=== PATIENT | male | born 1945 | race Caucasian/White ===

== ENCOUNTER 2016-09-26 16:33 | Inpatient (IN) ==
[2016-09-26] MEDS ORDERED: Acetaminophen 325 MG TABLET PO PRN (20:27)
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
[2016-09-26 21:12] LABS: Basophils % 0.2 %; Eosinophils # 0.1 K/mcL (0.0-0.6); Eosinophils % 0.4 %; Immature Granulocytes % 0.4 % (0-4); Immature Platelets 12.3 % (1.1-6.1); Lymphocytes # 3.4 K/mcL (0.6-4.6); Lymphocytes % 26.6 %; Mean Corpuscular Hemoglobin 28.3 pg (28.0-33.3); Mean Corpuscular Volume 88.3 fL (83.0-100.0); Mean Platelet Volume 12.2 fL (9.4-12.4); Monocytes # 0.8 K/mcL (0.0-1.3); Monocytes % 6.2 %; Neutrophils # 8.4 K/mcL (1.6-8.9); Platelet Count 164 K/mcL (140-400); Red Blood Count 2.83 M/mcL (4.19-5.50); Red Cell Distribution Width 13.6 % (11.5-14.5); Segmented Neutrophils % 66.2 %
[2016-09-26] MEDS: *HR* HYDROcodone/Acet 5/325 mg TABLET PO PRN (21:26)
[2016-09-26] MEDS: Pantoprazole 40 MG in 0.9 % Sodium Chloride Mini Bag 100 ML IVC SCH (21:27)
[2016-09-26 21:29] LABS: INR 1.4
[2016-09-26 21:32] LABS: Activated Partial Thrombo Time 25.6 Seconds (26.0-36.0)
[2016-09-26] MEDS: Acetaminophen 325 MG TABLET PO PRN (23:22)
[2016-09-26] MEDS: Nicotine 21 MG PATCH.TD24 TD SCH (23:22)
[2016-09-27] MEDS: Pantoprazole 40 MG in 0.9 % Sodium Chloride Mini Bag 100 ML IVC SCH ×3 (02:18→20:57)
[2016-09-27 04:34] LABS: Basophils % 0.1 %; Eosinophils # 0.1 K/mcL (0.0-0.6); Eosinophils % 0.6 %; Hematocrit 20.8 % (37.5-50.1); Hemoglobin 6.8 g/dL (12.9-16.9); Immature Granulocytes % 0.4 % (0-4); Lymphocytes # 2.3 K/mcL (0.6-4.6); Lymphocytes % 22.8 %; Mean Corpuscular HGB Conc 32.7 g/dL (31.6-35.5); Mean Corpuscular Hemoglobin 28.9 pg (28.0-33.3); Mean Corpuscular Volume 88.5 fL (83.0-100.0); Mean Platelet Volume 13.1 fL (9.4-12.4); Monocytes # 0.5 K/mcL (0.0-1.3); Monocytes % 5.3 %; Platelet Count 136 K/mcL (140-400); Red Blood Count 2.35 M/mcL (4.19-5.50); Red Cell Distribution Width 13.8 % (11.5-14.5); Segmented Neutrophils % 70.8 %
[2016-09-27] MEDS ORDERED: 0.9 % Sodium Chloride 500 ML ONE (04:50)
[2016-09-27 04:52] LABS: BUN/Creatinine Ratio 34 (6-26); Blood Urea Nitrogen 37 mg/dL (8-26); Calcium 7.6 mg/dL (8.6-10.8); Carbon Dioxide 22 mEq/L (19-29); Chloride 113 mEq/L (98-109); Glucose 105 mg/dL (70-99); Magnesium 1.6 mg/dL (1.6-2.6); Osmolality,Calculated 297 (280-300); Phosphorous 2.7 mg/dL (2.3-4.7); Potassium 3.7 mEq/L (3.5-4.5); Sodium 139 mEq/L (136-145); eGFR For African Americans > 60 (> 60); eGFR For Non-African Americans > 60 (> 60)
[2016-09-27] MEDS ORDERED: 0.9 % Sodium Chloride Mini Bag 100 ML ONE ×2 (07:47→16:11)
[2016-09-27] MEDS: Nicotine 21 MG PATCH.TD24 TD SCH (07:50)
[2016-09-27] MEDS: *HR* HYDROcodone/Acet 5/325 mg TABLET PO PRN ×3 (07:51→23:28)
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
[2016-09-27] MEDS ORDERED: *HR* LORazepam 0.5 MG TABLET PO ONE (10:27)
[2016-09-27] MEDS: Acetaminophen 325 MG TABLET PO PRN (10:39)
[2016-09-27] MEDS: 0.9 % Sodium Chloride 1,000 ML IVC SCH ×2 (10:45→20:57)
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
[2016-09-27] MEDS: *HR* HYDROmorphone 2 MG/ML SYRINGE IVP PRN ×4 (11:53→22:34)
--- NOTE | 2016-09-27 14:47 | Anesthesia Evaluation PreOp ---
Date of Encounter: 09/27/16 Time of Encounter: 14:44 - Past History Planned Operation: egd/acute blood loss Cardiac History: Other (s/p 2 u prbc. cad, AAA s/p stent) Pulmonary History: Smoker, Pack/yr (60) ANTISQUEAK CHALKER History: Other (anxiety/depression) Other Medical History: Renal (stones), GERD Anesthesia History: No Prior Anesthetic Complications, Past Anesthesia (AAA stent) Alcohol Use: none Drug use: none Medications and Allergies No Known Home Drugs 09/26/16 [History] Allergies codeine Adverse Reaction (Verified 09/26/16 20:45) Shakiness - Meds/Allergy Pre-op Review Medications Reviewed: Yes Allergies Reviewed: Yes Beta Blockers on Current Med List: No Anesthesia Results - Labs 09/27/16 03:07 09/27/16 03:07 - Imaging EKG: report reviewed (sr) Anesthesia Exam Vital Signs/O2 Sat/Glucose, Most Current Temp Pulse Resp BP Pulse Ox 09/27/16 14:48 97.6 F 77 18 164/84 99 Height: 1.8 Weight: 170 NPO (# of Hours): >8 - HEENT Pupil (Motor): Pupils equal, EOMI Mallampati: I Teeth: Edentulous Oral Opening: Greater than 3 - ANTISQUEAK CHALKER LOC: Oriented ANTISQUEAK CHALKER Motor: Normal RUE, Normal LUE, Normal RLE, Normal LLE, Normal Face ANTISQUEAK CHALKER Sensory: Normal: RUE, LUE, RLE, LLE, Face - Cardiac Rhythm: Regular Murmur: None - Pulmonary Breath Sounds: bilateral Clear Respiratory Effort: Symmetrical Anesthesia Assess/Plan ASA Score: 2 Modified [place] Scale for Level of Consciousness: Cooperative, oriented, and tranquil Anesthetic Plan: MAC Monitoring Plan: Standard Monitors Recovery Plan: Other
[2016-09-27] MEDS ORDERED: *HR* EPINEPHrine 1 MG/10 ML SYRINGE INTRATRACH PRN (15:40)
[2016-09-27] MEDS ORDERED: Tetracaine/Benzocaine/Butamben 200MG/SPRAY (100SPY/BOT) MM ONE (15:40)
[2016-09-27] MEDS ORDERED: 0.9 % Sodium Chloride 1,000 ML IVC SCH (15:45)
[2016-09-27] MEDS ORDERED: Ondansetron ODT 4 MG TAB.RAPDIS SL PRN (16:58)
[2016-09-27 17:11] LABS: Chol/HDL Ratio 5.3 (0-4.9)
[2016-09-27] MEDS: hydroCHLOROthiazide 25 MG TABLET PO SCH (18:11)
[2016-09-28] MEDS: *HR* HYDROmorphone 2 MG/ML SYRINGE IVP PRN ×3 (01:31→07:28)
[2016-09-28] MEDS: Pantoprazole 40 MG in 0.9 % Sodium Chloride Mini Bag 100 ML IVC SCH ×4 (02:07→07:23)
[2016-09-28 06:55] VITALS: BP 138/72
[2016-09-28] MEDS: Nicotine 21 MG PATCH.TD24 TD SCH (07:19)
[2016-09-28] MEDS: hydroCHLOROthiazide 25 MG TABLET PO SCH (07:21)
[2016-09-28 08:44] LABS: Hematocrit 22.7 % (37.5-50.1); Hemoglobin 7.4 g/dL (12.9-16.9)
[2016-09-28] MEDS: *HR* HYDROcodone/Acet 5/325 mg TABLET PO PRN (08:45)
[2016-09-28 08:50] LABS: BUN/Creatinine Ratio 17 (6-26); Calcium 7.9 mg/dL (8.6-10.8); Carbon Dioxide 25 mEq/L (19-29); Chloride 110 mEq/L (98-109); Glucose 97 mg/dL (70-99); Osmolality,Calculated 292 (280-300); Potassium 3.6 mEq/L (3.5-4.5); Sodium 140 mEq/L (136-145); eGFR For African Americans > 60 (> 60); eGFR For Non-African Americans > 60 (> 60)
[2016-09-28 08:51] LABS: Blood Urea Nitrogen 19 mg/dL (8-26)
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
[2016-09-28] MEDS ORDERED: Lidocaine -MPF 2% 5 ML VIAL INFILT ONE (11:29)
[2016-09-28] MEDS ORDERED: *HR* Propofol 200 MG/20 ML VIAL IVP ONE (11:29)
== END 2016-09-28 11:30 | disposition home or self-care (01) | DRG 917 ==
LOC: 3ANU
PROVIDERS: ADMIT Hospitalist; ATTEND Internal Medicine

== ENCOUNTER 2017-06-14 22:00 | Inpatient (IN) ==
[2017-06-14] MEDS ORDERED: *HR* FentaNYL (PF) 100 MCG/2 ML VIAL IVP ONE (22:52)
[2017-06-14] MEDS ORDERED: *HR* Morphine 2 MG/ML SYRINGE IVP PRN (22:53)
[2017-06-14] MEDS ORDERED: Pantoprazole 40 MG VIAL IVP ONE (22:55)
--- NOTE | 2017-06-14 22:58 | Internal Med History&Physical ---
<Tab Monk - Last Filed: 06/14/17 22:56> Date of Encounter: 06/14/17 Time of Encounter: 22:56 Assessment and Plan (1) GI bleed Current visit: Yes Status: Suspected Patient has been experiencing black and bloody stools intermittently over the past few days. The patient has been taking a large amount NSAIDs due to chronic back pain and worsening of his back pain and he has been experiencing over the same course appeared to time. The patient has a history of gastric ulcer in the past visualized on endoscopy. We will begin the patient on Protonix twice a day, replace with IV fluids. We will continue to monitor the patient's hemoglobin and likely transfusion patient. We will obtain pain control as well. Qualifiers: GI bleed type/associated pathology: unspecified gastrointestinal hemorrhage type Qualified Code(s): K92.2 - Gastrointestinal hemorrhage, unspecified (2) Anemia Current visit: No Status: Acute Fluctuated over the course of the past week. Dropped to 7.0 today at outlying facility. We will continue to monitor the patient and type and screen for concern for possible transfusion if necessary. Qualifiers: Anemia type: unspecified type Qualified Code(s): D64.9 - Anemia, unspecified (3) YOHANNES (acute kidney injury) Current visit: No Status: Acute We will continue with IV fluid hydration and monitor renal status. (4) CAD (coronary artery disease) Current visit: No Status: Chronic Qualifiers: Coronary Disease-Associated Artery/Lesion type: [place] artery Qualified Code(s): I25.10 - Atherosclerotic heart disease of [place] coronary artery without angina pectoris (5) Hypertension Current visit: No Status: Chronic Poorly controlled on medications. We will continue to monitor. We will hold any medications at this time with concern for possible hypotension at outlying facility per report. Qualifiers: Hypertension type: essential hypertension Qualified Code(s): I10 - Essential (primary) hypertension Internal Medicine - H&P: HPI Chief complaint: Epigastric pain Admitted From: Emergency Dept Plans for Post Hospital Care: Home History of present illness: Mr. Dowling is a 72 year old male with history of past GI bleed arrives to emergency department complaining of epigastric discomfort as well as bilateral flank pain. The patient states that he has been unable to take any pain medication as recently seen in the emergency department and evaluated previously. The patient states that he has been extremity pain over the course of the past few days he has been taking medications. The patient states that he took an unknown quantity of Motrin as well as 15-20 tablets of acetaminophen at roughly 500 mg in size. The patient states that he has been experiencing epigastric pain as well. The patient states he has had intermittent episodes of black stools over the course of the past 48 hours. He denies any other abdominal pain, vomiting, diarrhea, difficulty breathing. The patient does have some associated chest pain with the epigastric but states it is radiating from his epigastric region into his retrosternal region. Patient denies any previous history of [place]. He has not been taking his hypertensive medications as prescribed. The patient denies any other complaints at this time. Workup at outlying facility revealed an anemia with a hemoglobin of 7.0. The patient states that he has had past endoscopy in the past in "had my ulcer fixed" through endoscopy. The patient denies any other complaints. He is resting comfortably in the room without any signs of tachycardia or hypotension. Past Med Surg Social Fam HX - Past Medical History Source: old records reviewed Medical history: aortic aneurysm, coronary artery disease, hyperlipidemia, hypertension, kidney stones, myocardial infarction Psychiatric history: anxiety, depression - Past Surgical History Surgical History: herniorrhaphy, vascular surgery, other - Social History Smoking Status: Former smoker Smokeless Tobacco Status: No Alcohol use: rarely Drug use: none Current living situation: Home, With Family - Family History Mother Living Status: Hx Family Cardiac Disorders: Yes ([place]) Father Adopted: No Living Status: Hx Family Cancer: Yes (Skin cancer) Internal Medicine - H&P: Meds cloNIDine HCl [CloNIDine HCl] 0.1 mg PO BID #30 tablet 06/12/17 [Rx] 3 Allergy/AdvReac Type Severity Reaction Status Date / Time acetaminophen AdvReac Fatigued Verified 06/12/17 17:33 codeine AdvReac Shakiness Verified 06/10/17 12:34 All Systems PM: A 10-system review of systems was performed and is negative for pertinent findings except as documented above in the HPI. - Constitutional Constitutional: no chills, no fever(s), no night sweats - EENT Eyes: no change in vision, no discharge, no pain, no photophobia - Cardiovascular Cardiovascular ROS IM: chest pain, no diaphoresis, no dyspnea, no lightheadedness, no palpitations, no syncope - Respiratory Respiratory: no cough, no dyspnea, no wheezing, no excessive phlegm production - Gastrointestinal Gastrointestinal: abdominal pain, melena, nausea, no diarrhea, no hematemesis, no hematochezia, no vomiting - Musculoskeletal Musculoskeletal ROS IM: no numbness, no tingling - Integumentary Integumentary IM: no rash, no unusual bruising - Neurological Neurological ROS: no confusion, no convulsions, no focal weakness, no numbness, no tingling, no tremor(s) - Hematologic/Lymphatic Hematologic/Lymphatic: no easy bruising - Constitutional Vitals: Temp Pulse Resp BP Pulse Ox 98.4 F 69 19 138/72 91 06/14/17 21:03 06/14/17 21:03 06/14/17 21:03 06/14/17 21:03 06/14/17 21:03 General appearance: Present: A&O X 3, pleasant, no acute distress - Head Head exam: Present: atraumatic, normocephalic - Eye Eye exam: Present: PERRL, conjuntiva pink, sclera anicteric Pupils: Present: PERRL - Neck Neck exam general surgery: Present: supple, trachea midline. Absent: lymphadenopathy - Respiratory Respiratory exam: Present: CTAB. Absent: accessory muscle use, rales, rhonchi, wheezes - Cardiovascular Cardiovascular exam: Present: RRR, +S1, +S2. Absent: diastolic murmur, gallop, rubs, systolic murmur - GI/Abdominal GI/Abdominal exam: Present: soft, no peritoneal signs. Absent: distended, tenderness - Extremities Exam Extremities exam: Present: warm, radial pulses palpable and symmetrical. Absent : calf tenderness, cyanotic, pedal edema - Neurological Exam Neurological exam: Present: CN II-XII intact, oriented X3, no focal deficits. Absent: pronater drift, facial droop, speech deficit - Skin Skin exam: Present: dry, intact - Attending Attestation I examined this patient and my medical decision-making was reviewed with the Resident Physician. I agree with the documented findings, disposition and treatment plan as described except to the extent set forth below. <Nieves Badillo - Last Filed: 06/15/17 05:29> Date of Encounter: 06/15/17 Internal Medicine - H&P: HPI History of present illness: Mr. Dowling is a 72 year old male All Systems PM: A 10-system review of systems was performed and is negative for pertinent findings except as documented above in the HPI. - Constitutional Vitals: Temp Pulse Resp BP Pulse Ox 98.4 F 76 19 146/66 98 06/15/17 04:43 06/15/17 04:43 06/15/17 04:43 06/15/17 04:43 06/15/17 04:43 Internal Med - H&P Results - Labs CBC & Chem 7: 06/15/17 01:32 06/14/17 23:02 Labs: Short CBC 06/14/17 06/15/17 Range/Units 23:02 01:32 WBC 7.4 (4.3-11.1) K/mcL Hgb 6.8 L 6.1 L (12.9-16.9) g/dL Hct 22.7 L 20.1 L (37.5-50.1) % Plt Count 219 (140-400) K/mcL Neutrophils # 5.0 (1.6-8.9) K/mcL BMP 06/14/17 23:02 Sodium 141 Potassium 3.2 L Chloride 111 H Carbon Dioxide 21 L BUN 29 H Creatinine 2.51 H Glucose 123 H Calcium 8.4 L Cardiac Enzymes 06/14/17 Range/Units 23:02 Troponin I < 0.03 (< 0.04) ng/mL - Attending Attestation I have seen and examined this patient independently. I have discussed with resident physician Dr. Monk regarding the management plan. Agree with that documentation.
[2017-06-14 23:12] LABS: Basophils % 0.3 %; Eosinophils # 0.1 K/mcL (0.0-0.6); Eosinophils % 1.8 %; Hematocrit 22.7 % (37.5-50.1); Hemoglobin 6.8 g/dL (12.9-16.9); Immature Granulocytes % 0.4 % (0-4); Lymphocytes # 1.8 K/mcL (0.6-4.6); Lymphocytes % 24.8 %; Mean Corpuscular Hemoglobin 26.5 pg (28.0-33.3); Mean Corpuscular Volume 88.3 fL (83.0-100.0); Mean Platelet Volume 12.8 fL (9.4-12.4); Monocytes # 0.4 K/mcL (0.0-1.3); Monocytes % 5.9 %; Platelet Count 219 K/mcL (140-400); Red Blood Count 2.57 M/mcL (4.19-5.50); Red Cell Distribution Width 18.1 % (11.5-14.5); Segmented Neutrophils % 66.8 %
[2017-06-14] MEDS: 0.9 % Sodium Chloride 1,000 ML IVC SCH (23:19)
[2017-06-14 23:30] LABS: Calcium 8.4 mg/dL (8.6-10.3); Potassium 3.2 mEq/L (3.5-5.1)
[2017-06-15] MEDS: *HR* LORazepam 2 MG/ML VIAL IVP ONE ×2 (00:55→01:01)
[2017-06-15] MEDS ORDERED: *HR* LORazepam 2 MG/ML VIAL IVP ONE ×2 (01:00→17:07)
[2017-06-15 01:44] LABS: Hematocrit 20.1 % (37.5-50.1); Hemoglobin 6.1 g/dL (12.9-16.9)
[2017-06-15 05:46] LABS: Basophils % 0.3 %; Eosinophils # 0.2 K/mcL (0.0-0.6); Hematocrit 22.2 % (37.5-50.1); Hemoglobin 6.8 g/dL (12.9-16.9); Immature Granulocytes % 0.5 % (0-4); Lymphocytes # 1.8 K/mcL (0.6-4.6); Lymphocytes % 28.3 %; Mean Corpuscular HGB Conc 30.6 g/dL (31.6-35.5); Mean Corpuscular Hemoglobin 26.6 pg (28.0-33.3); Mean Corpuscular Volume 86.7 fL (83.0-100.0); Mean Platelet Volume 12.5 fL (9.4-12.4); Monocytes # 0.4 K/mcL (0.0-1.3); Monocytes % 6.5 %; Platelet Count 200 K/mcL (140-400); Red Blood Count 2.56 M/mcL (4.19-5.50); Red Cell Distribution Width 17.7 % (11.5-14.5); Segmented Neutrophils % 61.4 %
[2017-06-15] MEDS: *HR* Morphine 2 MG/ML SYRINGE IVP PRN ×9 (05:50→20:16)
[2017-06-15] MEDS: Pantoprazole 40 MG VIAL IVP SCH ×2 (05:55→17:23)
[2017-06-15 06:00] LABS: Calcium 7.8 mg/dL (8.6-10.3); Potassium 3.1 mEq/L (3.5-5.1)
[2017-06-15] MEDS ORDERED: Naloxone 0.4 MG/ML INJ IVP PRN (06:15)
[2017-06-15] MEDS ORDERED: Potassium Chloride 40 MEQ, Lidocaine 1% 2 ML in D5% in Water 500 ML IVPB ONE (06:24)
--- NOTE | 2017-06-15 08:15 | General Surgery Consult Note ---
Addendum entered and electronically signed by Mami Dobson MD 06/15/17 18:25: Correction: Plan for EGD/colonoscopy. Original Note: <Mami Dobson - Last Filed: 06/15/17 17:50> Date of Encounter: 06/15/17 Time of Encounter: 08:15 Assessment and Plan (1) GI bleed Current Visit: Yes Status: Suspected Pt complaining of melanotic stools s/p unknown quantity of Motrin as well as 15- 20 tablets of acetaminophen at roughly 500 mg in size. -Endorsed intermittent episodes of black stools over the course of the past 48 hours. -Pt denies this was due to SI ideation to RN, and secondary to chronic back and "due to my kidneys". -Denied SI/HI to resident . -Clear liquid diet. -Attending Terry discussed risk and benefits of procedure to patient. Pt amenable to plan. - Plan for EGD tomorrow. -NPO diet from midnight. Qualifiers: GI bleed type/associated pathology: unspecified gastrointestinal hemorrhage type Qualified Code(s): K92.2 - Gastrointestinal hemorrhage, unspecified (2) CAD (coronary artery disease) Current Visit: No Status: Chronic Management per primary team. Qualifiers: Coronary Disease-Associated Artery/Lesion type: [place] artery Qualified Code(s): I25.10 - Atherosclerotic heart disease of [place] coronary artery without angina pectoris (3) Hypertension Current Visit: No Status: Chronic Management per primary team. 181 One elevated SBP at 185. Pt asymptomatic. Requested RN repeat BP and returned with 147/70. RN to notify hospitalist if elevated BP. Recommend IV low- dose lopressor PRN if elevated SBP. Qualifiers: Hypertension type: essential hypertension Qualified Code(s): I10 - Essential (primary) hypertension (4) Anemia Current Visit: No Status: Acute Hgb stable. Continue monitoring CBC. Qualifiers: Anemia type: unspecified type Qualified Code(s): D64.9 - Anemia, unspecified (5) YOHANNES (acute kidney injury) Current Visit: No Status: Acute Management per primary team. (6) NSAID overdose Current Visit: No Status: Acute management per primary team. Denies HI/SI to resident . Pt complaining of anxiety to multiple staff One time 0.5 mg ativan PO dose, per Dr. Stewart Likely will require psych consultation for complete assessment for psychological issues Qualifiers: Encounter type: initial encounter Injury intent: undetermined intent Qualified Code(s): T39.394A - Poisoning by other nonsteroidal anti-inflammatory drugs [NSAID], undetermined, initial encounter History of Present Illness Consult date: 06/15/17 Reason for consult: other Requesting physician: Nieves Badillo History of present illness: Mr. Dowling is a 72 year old male with history of past GI bleed arrives to emergency department complaining of epigastric discomfort as well as bilateral flank pain. Patient has been experiencing black and bloody stools intermittently over the past few days. The patient has been taking a large amount NSAIDs due to chronic back pain and worsening of his back pain and he has been experiencing over the same course appeared to time. The patient has a history of gastric ulcer in the past visualized on endoscopy. Past Med Surg Social Fam HX - Past Medical History Medical history: aortic aneurysm, coronary artery disease, hyperlipidemia, hypertension, kidney stones, myocardial infarction Psychiatric history: anxiety, depression - Past Surgical History Surgical History: herniorrhaphy, vascular surgery, other - Social History Smoking Status: Former smoker Smokeless Tobacco Status: No Alcohol use: rarely Drug use: none - Family History Mother Living Status: Hx Family Cardiac Disorders: Yes ([place]) Father Adopted: No Living Status: Hx Family Cancer: Yes (Skin cancer) Medications and Allergies cloNIDine HCl [CloNIDine HCl] 0.1 mg PO BID #30 tablet 06/12/17 [Rx] Famotidine [Pepcid] 20 mg PO DAILY 06/15/17 [History] Ibuprofen [Ibuprofen] 800 mg PO TID PRN 06/15/17 [History] Ondansetron ODT [Zofran ODT] 4 mg PO Q6H PRN 06/15/17 [History] 3 Allergy/AdvReac Type Severity Reaction Status Date / Time acetaminophen AdvReac Fatigued Verified 06/12/17 17:33 codeine AdvReac Shakiness Verified 06/10/17 12:34 Review of Systems All systems PM: As documented above in the HPI. General Surgery Exam Initial Vital Signs Temp Pulse Resp BP Pulse Ox 98.4 F 69 19 138/72 91 06/14/17 21:03 06/14/17 21:03 06/14/17 21:03 06/14/17 21:03 06/14/17 21:03 - General physical appearance well developed, no distress - Eyes normal ocular movement - Respiratory normal expansion, normal respiratory effort, clear to auscultation - Cardiovascular Cardiovascular exam: Present: regular rhythm Additional Comments: +S1, +S2, - Abdomen Abdomen general surgery: Present: bowel sounds present, soft (pulsatile mass palpated near midline, consistent with Aortoiliac endograft), tender (mild tenderenss ) - Neurologic Present: normal coordination - Psychiatric Psychiatric general surgery: Present: appropriate, oriented to person, oriented to place, oriented to time, speech is normal Exam Initial Vital Signs Temp Pulse Resp BP Pulse Ox 98.4 F 69 19 138/72 91 06/14/17 21:03 06/14/17 21:03 06/14/17 21:03 06/14/17 21:03 06/14/17 21:03 Results - Labs 06/15/17 16:50 06/15/17 05:32 Abnormal lab results RBC 2.56 M/mcL (4.19-5.50) L 06/15/17 05:32 Hgb 6.8 g/dL (12.9-16.9) L 06/15/17 05:32 Hct 22.2 % (37.5-50.1) L 06/15/17 05:32 MCH 26.6 pg (28.0-33.3) L 06/15/17 05:32 MCHC 30.6 g/dL (31.6-35.5) L 06/15/17 05:32 RDW 17.7 % (11.5-14.5) H 06/15/17 05:32 MPV 12.5 fL (9.4-12.4) H 06/15/17 05:32 Potassium 3.1 mEq/L (3.5-5.1) L 06/15/17 05:32 Chloride 110 mEq/L (98-107) H 06/15/17 05:32 Carbon Dioxide 22 mEq/L (23-29) L 06/15/17 05:32 BUN 25 mg/dL (8-23) H 06/15/17 05:32 Creatinine 2.14 mg/dL (0.70-1.30) H 06/15/17 05:32 Est GFR ( Amer) 37 (> 60) L 06/15/17 05:32 Est GFR (Non-Af Amer) 31 (> 60) L 06/15/17 05:32 POC Glucose 108 (58-89) H 06/15/17 04:47 Calcium 7.8 mg/dL (8.6-10.3) L 06/15/17 05:32 Acetaminophen < 1.0 mcg/mL (10-30) L 06/14/17 23:02 Diabetes panel 06/14/17 06/15/17 Range/Units 23:02 05:32 Sodium 141 138 (136-145) mEq/L Potassium 3.2 L 3.1 L (3.5-5.1) mEq/L Chloride 111 H 110 H (98-107) mEq/L Carbon Dioxide 21 L 22 L (23-29) mEq/L BUN 29 H 25 H (8-23) mg/dL Creatinine 2.51 H 2.14 H (0.70-1.30) mg/dL Glucose 123 H 99 (70-105) mg/dL Calcium 8.4 L 7.8 L (8.6-10.3) mg/dL Calcium panel 06/14/17 06/15/17 Range/Units 23:02 05:32 Calcium 8.4 L 7.8 L (8.6-10.3) mg/dL Pituitary panel 06/14/17 06/15/17 Range/Units 23:02 05:32 Sodium 141 138 (136-145) mEq/L Potassium 3.2 L 3.1 L (3.5-5.1) mEq/L Chloride 111 H 110 H (98-107) mEq/L Carbon Dioxide 21 L 22 L (23-29) mEq/L BUN 29 H 25 H (8-23) mg/dL Creatinine 2.51 H 2.14 H (0.70-1.30) mg/dL Glucose 123 H 99 (70-105) mg/dL Calcium 8.4 L 7.8 L (8.6-10.3) mg/dL Adrenal panel 06/14/17 06/15/17 Range/Units 23:02 05:32 Sodium 141 138 (136-145) mEq/L Potassium 3.2 L 3.1 L (3.5-5.1) mEq/L Chloride 111 H 110 H (98-107) mEq/L Carbon Dioxide 21 L 22 L (23-29) mEq/L BUN 29 H 25 H (8-23) mg/dL Creatinine 2.51 H 2.14 H (0.70-1.30) mg/dL Glucose 123 H 99 (70-105) mg/dL Calcium 8.4 L 7.8 L (8.6-10.3) mg/dL All other labs normal. Consult Discharge Plan - Plan Referrals: NONE,PCP [Primary Care Provider] - <Calvin Stewart - Last Filed: 06/16/17 17:26> Date of Encounter: 06/15/17 Review of Systems All systems PM: A 10-system review of systems was performed and is negative for pertinent findings except as documented above in the HPI. General Surgery Exam Initial Vital Signs Temp Pulse Resp BP Pulse Ox 98.4 F 69 19 138/72 91 06/14/17 21:03 06/14/17 21:03 06/14/17 21:03 06/14/17 21:03 06/14/17 21:03 Exam Initial Vital Signs Temp Pulse Resp BP Pulse Ox 98.4 F 69 19 138/72 91 06/14/17 21:03 06/14/17 21:03 06/14/17 21:03 06/14/17 21:03 06/14/17 21:03 Results - Labs 06/16/17 04:26 06/16/17 04:26 Abnormal lab results RBC 2.92 M/mcL (4.19-5.50) L 06/16/17 04:26 Hgb 7.7 g/dL (12.9-16.9) L 06/16/17 04:26 Hct 25.2 % (37.5-50.1) L 06/16/17 04:26 MCH 26.4 pg (28.0-33.3) L 06/16/17 04:26 MCHC 30.6 g/dL (31.6-35.5) L 06/16/17 04:26 RDW 17.0 % (11.5-14.5) H 06/16/17 04:26 MPV 12.9 fL (9.4-12.4) H 06/16/17 04:26 Potassium 3.4 mEq/L (3.5-5.1) L 06/16/17 04:26 Chloride 112 mEq/L (98-107) H 06/16/17 04:26 Est GFR (Non-Af Amer) 57 (> 60) L 06/16/17 04:26 POC Glucose 100 (58-89) H 06/15/17 17:24 Calcium 7.9 mg/dL (8.6-10.3) L 06/16/17 04:26 Acetaminophen < 1.0 mcg/mL (10-30) L 06/14/17 23:02 Diabetes panel 06/16/17 Range/Units 04:26 Sodium 143 (136-145) mEq/L Potassium 3.4 L (3.5-5.1) mEq/L Chloride 112 H (98-107) mEq/L Carbon Dioxide 24 (23-29) mEq/L BUN 16 (8-23) mg/dL Creatinine 1.24 (0.70-1.30) mg/dL Glucose 91 (70-105) mg/dL Calcium 7.9 L (8.6-10.3) mg/dL Calcium panel 06/16/17 Range/Units 04:26 Calcium 7.9 L (8.6-10.3) mg/dL Pituitary panel 06/16/17 Range/Units 04:26 Sodium 143 (136-145) mEq/L Potassium 3.4 L (3.5-5.1) mEq/L Chloride 112 H (98-107) mEq/L Carbon Dioxide 24 (23-29) mEq/L BUN 16 (8-23) mg/dL Creatinine 1.24 (0.70-1.30) mg/dL Glucose 91 (70-105) mg/dL Calcium 7.9 L (8.6-10.3) mg/dL Adrenal panel 06/16/17 Range/Units 04:26 Sodium 143 (136-145) mEq/L Potassium 3.4 L (3.5-5.1) mEq/L Chloride 112 H (98-107) mEq/L Carbon Dioxide 24 (23-29) mEq/L BUN 16 (8-23) mg/dL Creatinine 1.24 (0.70-1.30) mg/dL Glucose 91 (70-105) mg/dL Calcium 7.9 L (8.6-10.3) mg/dL All other labs normal. - Attending Attestation I examined this patient and my medical decision-making was reviewed with the Resident Physician. I agree with the documented findings, disposition and treatment plan as described except to the extent set forth below. I reviewed with the above assessment and evaluation above. Patient with no abdominal pain symptoms or nausea vomiting history. Noted dark-colored of black stool. On examination he has some mild tenderness to palpation in the left side of the abdomen. This may be related to a palpable aneurysm which she is already had documented by CAT scan. I think it would be reasonable to consider an EGD and colonoscopy as an inpatient. Discussed with the patient and he agrees with the above plan. We will tentatively schedule this for tomorrow if he has a successful bowel prep.
[2017-06-15] MEDS: 0.9 % Sodium Chloride 1,000 ML IVC SCH ×2 (09:31→22:10)
[2017-06-15 10:54] LABS: Hematocrit 24.6 % (37.5-50.1); Hemoglobin 7.7 g/dL (12.9-16.9)
[2017-06-15 16:58] LABS: Hematocrit 24.1 % (37.5-50.1); Hemoglobin 7.6 g/dL (12.9-16.9)
[2017-06-15] MEDS ORDERED: *HR* LORazepam 0.5 MG TABLET PO ONE (17:08)
[2017-06-15] MEDS ORDERED: Milk and Molasses Enema 200 ML RC ONE (17:09)
--- NOTE | 2017-06-15 18:12 | Internal Med Progress Note ---
Date of Encounter: 06/15/17 Time of Encounter: 18:10 - Assessment and plan (1) GI bleed Current Visit: Yes Status: Suspected Assessment and plan: When he presented with that taking many medications weakness also reported black stools. Likely having upper GI bleed. Being evaluated by surgical team. He has stopped in his hemoglobin and had 2 units of blood transfusion. Continued on PPI I Qualifiers: GI bleed type/associated pathology: unspecified gastrointestinal hemorrhage type Qualified Code(s): K92.2 - Gastrointestinal hemorrhage, unspecified (2) Acute blood loss anemia Current Visit: No Status: Acute Assessment and plan: Patient reported that he has been having black stools. Hemoglobin dropped to 6.8 and has received 2 units of blood and up to 7.6 he has taken multiple ibuprofen continued to complain of upper abdominal pain. Surgery evaluating. Continue to monitor hemoglobin and evaluate for need for EGD. (3) NSAID overdose Current Visit: No Status: Acute Assessment and plan: He has been taking more than prescribed ibuprofen. And then he presented he has taken many tablets of NSAIDS will continue with proton pump inhibitors.. He was advised not to take any NSAIDS Qualifiers: Encounter type: initial encounter Injury intent: undetermined intent Qualified Code(s): T39.394A - Poisoning by other nonsteroidal anti-inflammatory drugs [NSAID], undetermined, initial encounter (4) YOHANNES (acute kidney injury) Current Visit: No Status: Acute Assessment and plan: His Renal function is abnormal. BUN is 29 and 2.5 on admission not sure about any prior chronic kidney disease. But with IV fluids and blood transfusion is improving BUN 25 creatinine 2.1 continue to monitor renal function. (5) Suicidal behavior Current Visit: Yes Status: Acute Assessment and plan: In addition to Tylenol, ibuprofen he took many tablets of clonidine as well. Daughter was at the bedside and discussed the case condition with me. He also has chronic pain. He seems to be dependent on narcotics as well. He used to go to different ERs to get pain medications. She also requested me to evaluate regarding depression and suicidal heavier since he knows that he cannot take many tablets of clonidine and he took it anyway. Psychiatric consult placed. Qualifiers: Attempted self-injury: with attempted self-injury Qualified Code(s): T14.91XA - Suicide attempt, initial encounter - Time Spent With Patient Greater than 35 minutes - Subjective Interval history: Patient presented to the emergency room with a complaint of epigastric pain and back pain. He has a chronic back pain. He has been on pain medications including opioids. Daughter and her family was at the bedside. Daughter reports he has issues with them narcotic dependency. And also because of his back pain he also took many tablets of ibuprofen and Tylenol as well as some clonidine. And there they do suspect that he has some suicidal intent and that they reported me that they would like him to be evaluated by psychiatric for depression and suicidal ideation. He has reported a black stools as well. Surgery evaluating for possible upper GI bleed. Has been on morphine 2 mg every 2 hours here. In addition to that he is asking for more medication to control his pain and for anxiety as well I told him we will not increase or add any more medications at this time. He denied any chest pain or shortness of breath at rest. He also requesting evaluation for dementia. - Constitutional Vitals: Temp Pulse Resp BP Pulse Ox 98.4 F 92 18 185/89 98 06/15/17 17:14 06/15/17 17:14 06/15/17 17:14 06/15/17 17:14 06/15/17 17:14 General appearance: Present: A&O X 3, pleasant, no acute distress Exam: Chronically ill-looking male in no acute distress has spell no cyanosis or jaundice. Mucous membranes moist. No epistaxis. Neck without any cervical or supraclavicular lymphadenopathy. CVS S1 and S2 are regular. No murmur appreciated. Respiratory system decreased entry bilaterally. No crepitations or rhonchi. Abdomen, no distention mild epigastric tenderness no hepatomegaly. Extremities no significant edema no calf tenderness. BUSINESS CONTINUITY COORDINATOR he is alert awake oriented no facial asymmetry. Mood appears depressed. Internal Medicine: Result - Labs CBC & Chem 7: 06/15/17 16:50 06/15/17 05:32 Labs: Short CBC 06/14/17 06/15/17 06/15/17 Range/Units 23:02 01:32 05:32 WBC 7.4 6.4 (4.3-11.1) K/mcL Hgb 6.8 L 6.1 L 6.8 L (12.9-16.9) g/dL Hct 22.7 L 20.1 L 22.2 L (37.5-50.1) % Plt Count 219 200 (140-400) K/mcL Neutrophils # 5.0 4.0 (1.6-8.9) K/mcL 06/15/17 06/15/17 Range/Units 10:34 16:50 WBC (4.3-11.1) K/mcL Hgb 7.7 L 7.6 L (12.9-16.9) g/dL Hct 24.6 L 24.1 L (37.5-50.1) % Plt Count (140-400) K/mcL Neutrophils # (1.6-8.9) K/mcL BMP 06/14/17 06/15/17 23:02 05:32 Sodium 141 138 Potassium 3.2 L 3.1 L Chloride 111 H 110 H Carbon Dioxide 21 L 22 L BUN 29 H 25 H Creatinine 2.51 H 2.14 H Glucose 123 H 99 Calcium 8.4 L 7.8 L Cardiac Enzymes 06/14/17 06/15/17 Range/Units 23:02 05:32 Troponin I < 0.03 < 0.03 (< 0.04) ng/mL - Impressions Impressions Abdomen/Pelvis CT 06/15/17 05:27 IMPRESSION: There are multiple calculi in both kidneys and there is a tiny calculus in the urinary bladder. There is no hydronephrosis and there are no ureteral calculi at this time. D/ / Jacques Oviedo MD / Jacques Oviedo MD Interpreting Provider: Jacques Oviedo MD - VTE Documentation of Mechanical Device: Intermittent pneumatic compression device Consult Discharge Plan - Plan Referrals: NONE,PCP [Primary Care Provider] -
[2017-06-15] MEDS: *HR* LORazepam 1 MG TABLET PO PRN (21:28)
[2017-06-15 23:10] LABS: Hematocrit 23.4 % (37.5-50.1); Hemoglobin 7.3 g/dL (12.9-16.9)
[2017-06-15] MEDS: Polyethylene Glycol 3350 255 GM POWDER PO ONE (23:45)
[2017-06-15] MEDS: *HR* Morphine 2 MG/ML SYRINGE IVP SCH (23:45)
[2017-06-16] MEDS: Polyethylene Glycol 3350 255 GM POWDER PO ONE (00:01)
[2017-06-16] MEDS: Pantoprazole 40 MG VIAL IVP SCH ×2 (04:33→16:58)
[2017-06-16] MEDS: *HR* Morphine 2 MG/ML SYRINGE IVP SCH ×6 (04:33→21:35)
[2017-06-16] MEDS: 0.9 % Sodium Chloride 1,000 ML IVC SCH (04:37)
[2017-06-16 05:09] LABS: Hematocrit 25.2 % (37.5-50.1); Hemoglobin 7.7 g/dL (12.9-16.9); Mean Corpuscular HGB Conc 30.6 g/dL (31.6-35.5); Mean Corpuscular Hemoglobin 26.4 pg (28.0-33.3); Mean Corpuscular Volume 86.3 fL (83.0-100.0); Mean Platelet Volume 12.9 fL (9.4-12.4); Platelet Count 179 K/mcL (140-400); Red Blood Count 2.92 M/mcL (4.19-5.50)
[2017-06-16 05:24] LABS: BUN/Creatinine Ratio 13 (6-26); Blood Urea Nitrogen 16 mg/dL (8-23); Calcium 7.9 mg/dL (8.6-10.3); Carbon Dioxide 24 mEq/L (23-29); Chloride 112 mEq/L (98-107); Glucose 91 mg/dL (70-105); Osmolality,Calculated 297 (280-300); Potassium 3.4 mEq/L (3.5-5.1); Sodium 143 mEq/L (136-145); eGFR For African Americans > 60 (> 60); eGFR For Non-African Americans 57 (> 60)
[2017-06-16] MEDS: *HR* LORazepam 1 MG TABLET PO PRN ×3 (06:39→20:50)
--- NOTE | 2017-06-16 09:59 | Anesthesia Evaluation PreOp ---
Date of Encounter: 06/16/17 Time of Encounter: 09:57 - Past History Planned Operation: EGD Cardiac History: Denies any Significant Hx (Left USE Cardiac History: [place], HTN ( came in with hypertensive urgency), Other (CAD, PAD with AAA repair with graft) Pulmonary History: Former smoker [employer] History: Denies Any Significant HX Other Medical History: Renal (stones, has YOHANNES secondary to stones), GERD Anesthesia History: No Prior Anesthetic Complications, Past Anesthesia (AAA repair, hernia ) Alcohol Use: rarely), [place], HTN, Other (CASD, PAD, AAA repair) Pulmonary History: Former smoker [employer] History: Denies Any Significant HX Other Medical History: Renal (stones), GERD Anesthesia History: No Prior Anesthetic Complications, Past Anesthesia (AAA repair, hernia, Kidney stone extraction) Alcohol Use: rarely Drug use: none Medications and Allergies cloNIDine HCl [CloNIDine HCl] 0.1 mg PO BID #30 tablet 06/12/17 [Rx] Famotidine [Pepcid] 20 mg PO DAILY 06/15/17 [History] Ibuprofen [Ibuprofen] 800 mg PO TID PRN 06/15/17 [History] Ondansetron ODT [Zofran ODT] 4 mg PO Q6H PRN 06/15/17 [History] 3 Allergy/AdvReac Type Severity Reaction Status Date / Time acetaminophen AdvReac Fatigued Verified 06/12/17 17:33 codeine AdvReac Shakiness Verified 06/10/17 12:34 - Meds/Allergy Pre-op Review Medications Reviewed: Yes Allergies Reviewed: Yes Beta Blockers on Current Med List: No Anesthesia Results - Labs 06/16/17 04:26 06/16/17 04:26 - Imaging EKG: report reviewed (SR) Anesthesia Exam Vital Signs/O2 Sat, Most Current Temp Pulse Resp BP Pulse Ox 97.8 F 68 16 169/75 98 06/16/17 04:43 06/16/17 08:41 06/16/17 04:43 06/16/17 04:43 06/15/17 17:14 NPO (# of Hours): > 8 hrs Pain Scale: 0 Pain Scale Used: Numeric (1 - 10) - HEENT Pupil (Motor): Pupils equal, EOMI Mallampati: II Teeth: Edentulous Oral Opening: Greater than 3 - [employer] LOC: Oriented [employer] Motor: Normal RUE, Normal LUE, Normal RLE, Normal LLE, Normal Face [employer] Sensory: Normal: RUE, LUE, RLE, LLE, Face - Cardiac Rhythm: Regular Murmur: None JVD: No Carotid Bruit: No - Pulmonary Breath Sounds: bilateral Clear Respiratory Effort: Symmetrical Anesthesia Assess/Plan ASA Score: 3 Modified [place] Scale for Level of Consciousness: Cooperative, oriented, and tranquil Anesthetic Plan: MAC Autologous Blood: Yes Monitoring Plan: Standard Monitors Recovery Plan: Other
[2017-06-16] MEDS ORDERED: *HR* Propofol 200 MG/20 ML VIAL IVP ONE (10:08)
[2017-06-16] MEDS ORDERED: Lidocaine -MPF 2% 2 ML VIAL ONE (10:08)
--- NOTE | 2017-06-16 10:37 | Event Note ---
Date of Encounter: 06/16/17 Time of Encounter: 10:35 EGD performed; noted granular mucosa of the GE junction. Biopsy obtained. Noted granular mucosa of the antrum. Biopsied. Several erosions in the duodenal bulb. Biopsy obtained. Recommend continued PPI and add carafate. Will contact the patient with the results of the biopsy once they have been obtained. Advance diet as tolerated. Will sign off; thank you.
--- NOTE | 2017-06-16 13:54 | Consult Note ---
Date of Encounter: 06/16/17 Time of Encounter: 13:46 Assessment & Recommendation (1) Suicidal behavior Current visit: Yes Status: Acute Assessment & Recommendation: Client was minimally cooperative with assessment. Denied depression. Denied SI. Denied having any mental health concerns. Guarded. May need assessed again once medical testing is complete. Would help to have collateral information from friends/family as to how he has been doing at home. At a minimum would refer for outpatient counseling. Would recommend a social work consult and possibly a reassessment from psychiatry prior to discharge. Qualifiers: Attempted self-injury: with attempted self-injury Qualified Code(s): T14.91XA - Suicide attempt, initial encounter History of Present Illness Requesting Physician: Rodger Escobar DO Reason for consult: suicidal ideation History of present illness: Mr. Dowling is a 72 year old male who was admitted medically for a GI bleed. Had been overtaking medications at home. Client states he was overtaking meds due to "feeling bad." When asked to elaborate he would only say he was having physical pain in back and kidneys. Family concerned for depression and possible SI. On eval client is minimally cooperative. Denies everything. Denies depression. Denies SI. Denies need for mental health services. Client states he has never seen a psychiatrist before and doesn't feel he needs one now. 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 Denies he has ever been prescribed this medication outside of a hospital setting. When asked if he would like outpatient services for anxiety his response was "maybe later. " CC: Rodger Escobar DO Past Med Surg Social Fam HX - Past Medical History Medical history: aortic aneurysm, coronary artery disease, hyperlipidemia, hypertension, kidney stones, myocardial infarction - Past Psychiatric History Psychiatric history: Reports: no psych history Family psychiatric history: Unknown Family History of Suicide: Unknown - Past Surgical History Surgical History: herniorrhaphy, vascular surgery, other - Social History Smoking Status: Former smoker Smokeless Tobacco Status: No Alcohol use: rarely Drug use: none - Family History Mother Living Status: Hx Family Cardiac Disorders: Yes ([place]) Father Adopted: No Living Status: Hx Family Cancer: Yes (Skin cancer) Medications & Allergies cloNIDine HCl [CloNIDine HCl] 0.1 mg PO BID #30 tablet 06/12/17 [Rx] Famotidine [Pepcid] 20 mg PO DAILY 06/15/17 [History] Ibuprofen [Ibuprofen] 800 mg PO TID PRN 06/15/17 [History] Ondansetron ODT [Zofran ODT] 4 mg PO Q6H PRN 06/15/17 [History] 3 Allergy/AdvReac Type Severity Reaction Status Date / Time acetaminophen AdvReac Fatigued Verified 06/12/17 17:33 codeine AdvReac Shakiness Verified 06/10/17 12:34 Review of Systems Constitutional: Denies: fever, chills, weakness, weight change Eyes: Denies: eye pain, vision change Ears, Nose, Throat: Denies: ear pain, throat pain, dental pain, hearing loss, congestion Cardiovascular: Denies: chest pain, palpitations, dyspnea on exertion Respiratory: Denies: cough, dyspnea, wheezes Gastrointestinal: Reports: hematemisis Genitourinary male: Reports: hematuria Genitourinary female: Denies: urgency, dysuria, frequency, abnormal menses, dyspareunia Musculoskeletal: Reports: back pain, joint pain, myalgia Integumentary: Denies: rash, lesions, pruritus Neurological: Reports: weakness Psychiatric: Reports: irritability Endocrine: Denies: fatigue, heat or cold intolerance Hematologic/Lymphatic: Denies: easy bruising, lymphadenopathy Allergic/Immunologic: Denies: urticaria, itchy eyes Mental Status Exam Patient orientation: Yes Person, Yes Time, Yes Place Level of alertness: Alert Patient appearance: Appropriate Behavior: guarded Psychomotor activity: Normal Eye contact: Minimal Contact Mood description: Irritable Affect description: congruent with mood Speech pattern: Normal rate, Normal rhythm, Normal tone Speech volume: Normal Thought process: Linear Thought content: No Suicidal ideation, No Homicidal ideation, No Overt delusions Perceptual disturbances: No Auditory hallucinations, No Visual hallucinations Attention span: Capable of Focused Attention Memory description: Grossly Intact Patient reliability: Questionable Historian Intelligence estimate: Average Judgment: Limited Insight: Minimal Results - Vital Signs Vital signs: Temp Pulse Resp BP Pulse Ox 98.8 F 64 16 156/87 98 06/16/17 10:57 06/16/17 10:57 06/16/17 10:57 06/16/17 10:57 06/15/17 17:14 - Labs Labs: Laboratory Last Values WBC 5.7 K/mcL (4.3-11.1) 06/16/17 04:26 RBC 2.92 M/mcL (4.19-5.50) L 06/16/17 04:26 Hgb 7.7 g/dL (12.9-16.9) L 06/16/17 04:26 Hct 25.2 % (37.5-50.1) L 06/16/17 04:26 MCV 86.3 fL (83.0-100.0) 06/16/17 04:26 MCH 26.4 pg (28.0-33.3) L 06/16/17 04:26 MCHC 30.6 g/dL (31.6-35.5) L 06/16/17 04:26 RDW 17.0 % (11.5-14.5) H 06/16/17 04:26 Plt Count 179 K/mcL (140-400) 06/16/17 04:26 MPV 12.9 fL (9.4-12.4) H 06/16/17 04:26 Immature Gran % 0.5 % (0-4) 06/15/17 05:32 Seg Neutrophils % 61.4 % 06/15/17 05:32 Lymphocytes % 28.3 % 06/15/17 05:32 Monocytes % 6.5 % 06/15/17 05:32 Eosinophils % 3.0 % 06/15/17 05:32 Basophils % 0.3 % 06/15/17 05:32 Neutrophils # 4.0 K/mcL (1.6-8.9) 06/15/17 05:32 Lymphocytes # 1.8 K/mcL (0.6-4.6) 06/15/17 05:32 Monocytes # 0.4 K/mcL (0.0-1.3) 06/15/17 05:32 Eosinophils # 0.2 K/mcL (0.0-0.6) 06/15/17 05:32 Basophils # 0.0 K/mcL (0.0-0.2) 06/15/17 05:32 Sodium 143 mEq/L (136-145) 06/16/17 04:26 Potassium 3.4 mEq/L (3.5-5.1) L 06/16/17 04:26 Chloride 112 mEq/L (98-107) H 06/16/17 04:26 Carbon Dioxide 24 mEq/L (23-29) 06/16/17 04:26 BUN 16 mg/dL (8-23) 06/16/17 04:26 Creatinine 1.24 mg/dL (0.70-1.30) 06/16/17 04:26 Est GFR ( Amer) > 60 (> 60) 06/16/17 04:26 Est GFR (Non-Af Amer) 57 (> 60) L 06/16/17 04:26 BUN/Creatinine Ratio 13 (6-26) 06/16/17 04:26 Glucose 91 mg/dL (70-105) 06/16/17 04:26 POC Glucose 100 (58-89) H 06/15/17 17:24 Calculated Osmolality 297 (280-300) 06/16/17 04:26 Calcium 7.9 mg/dL (8.6-10.3) L 06/16/17 04:26 Troponin I < 0.03 ng/mL (< 0.04) 06/15/17 05:32 Acetaminophen < 1.0 mcg/mL (10-30) L 06/14/17 23:02 Blood Type A POSITIVE 06/14/17 09:27 Antibody Screen NEGATIVE 06/14/17 09:27 Crossmatch See Detail 06/14/17 09:27 Consult Discharge Plan - Plan Referrals: NONE,PCP [Primary Care Provider] -
--- NOTE | 2017-06-16 13:55 | Anesthesia Evaluation Post Op ---
Date of Encounter: 06/16/17 Time of Encounter: 13:55 - Vital Signs Vital Signs: Vital Signs/O2 Sat, Most Current Temp Pulse Resp BP Pulse Ox 98.8 F 64 16 156/87 98 06/16/17 10:57 06/16/17 10:57 06/16/17 10:57 06/16/17 10:57 06/15/17 17:14 - Lungs Lungs: Clear Ascult./Percussion - Airway Airway: Non-obstructed - Cardiovascular Regular Rate - Mental Status Mental Status: Alert & Oriented, Answers Appropriately - Pain Pain Scale: 0 Pain Scale used: Numeric (1 - 10) - Nausea Vomiting Nausea Vomiting: Not Present - Hydration Hydration: Tolerates oral liquids, Has not voided - Discharge PostOp Status: Transfer Patient to floor
--- NOTE | 2017-06-16 16:41 | Internal Med Progress Note ---
Date of Encounter: 06/16/17 Time of Encounter: 16:10 - Assessment and plan (1) Melena Current Visit: Yes Status: Acute Assessment and plan: Pt s/p EGD and biopsies today. No overt bleeding noted. No further procedures planned at this time. (2) Acute blood loss anemia Current Visit: No Status: Acute Assessment and plan: Hemoglobin 7.7 today. Symptomatic at this time. Will give another unit of blood. No obvious bleeding noted. (3) NSAID overdose Current Visit: No Status: Acute Assessment and plan: Took multiple ibuprofen to "feel better." No NSAIDS now. Qualifiers: Encounter type: subsequent encounter Injury intent: undetermined intent Qualified Code(s): T39.394D - Poisoning by other nonsteroidal anti-inflammatory drugs [NSAID], undetermined, subsequent encounter (4) Hypokalemia Current Visit: No Status: Acute Assessment and plan: Replace today. Will give IV due to GI issues. (5) Clonidine overdose Current Visit: Yes Status: Acute Assessment and plan: See above Qualifiers: Encounter type: subsequent encounter Injury intent: undetermined intent Qualified Code(s): T46.5X4D - Poisoning by other antihypertensive drugs, undetermined, subsequent encounter (6) Suicidal behavior Current Visit: Yes Status: Acute Assessment and plan: Evaluated by psychiatry today. Pt denies suicidal ideation at this time but is very evasive in discussion. Further psych input needed. Qualifiers: Attempted self-injury: with attempted self-injury Qualified Code(s): T14.91XA - Suicide attempt, initial encounter (7) Hypertension Current Visit: No Status: Chronic Assessment and plan: Chronic issue. BP going up now. Will restart Clonidine and wean off. Feel he is high risk for rebound HTN now and in future. Qualifiers: Hypertension type: essential hypertension Qualified Code(s): I10 - Essential (primary) hypertension (8) CAD (coronary artery disease) Current Visit: No Status: Chronic Assessment and plan: Chronic issue Qualifiers: Coronary Disease-Associated Artery/Lesion type: [place] artery [place] vs. transplanted heart: [place] heart Associated angina: without angina Qualified Code(s): I25.10 - Atherosclerotic heart disease of [place] coronary artery without angina pectoris - Subjective Interval history: Mr Dowling is currently admitted for acute GI bleed and anemia. He remains moderate to high risk due to potential for worsening clinical status. Mr Dowling is complaining of "kidney pain" and requesting IV pain meds. No fever or chills. Had EGD today and biopsy taken. Surgery signed off and no further procedures planned. Still feels somewhat tired. Hemoglobin still low. - Constitutional Vitals: Temp Pulse Resp BP Pulse Ox 98.8 F 64 16 156/87 98 06/16/17 10:57 06/16/17 10:57 06/16/17 10:57 06/16/17 10:57 06/15/17 17:14 General appearance: Present: A&O X 3, no acute distress - Head Head exam: Present: atraumatic, normocephalic - Eye Eye exam: Present: EOMI, conjuntiva pink - ENT ENT exam: Present: mucous membranes dry - Respiratory Respiratory exam: Present: decreased breath sounds. Absent: rales, rhonchi, wheezes - Cardiovascular Cardiovascular exam: Present: RRR, systolic murmur - GI/Abdominal GI/Abdominal exam: Present: soft. Absent: tenderness - Extremities Exam Extremities exam: Present: warm. Absent: tenderness - Neurological Exam Neurological exam: Present: alert, no focal deficits - Skin Skin exam: Present: warm. Absent: rash Internal Medicine: Result - Labs CBC & Chem 7: 06/16/17 04:26 06/16/17 04:26 Labs: Short CBC 06/15/17 06/15/17 06/16/17 Range/Units 16:50 22:58 04:26 WBC 5.7 (4.3-11.1) K/mcL Hgb 7.6 L 7.3 L 7.7 L (12.9-16.9) g/dL Hct 24.1 L 23.4 L 25.2 L (37.5-50.1) % Plt Count 179 (140-400) K/mcL BMP 06/16/17 04:26 Sodium 143 Potassium 3.4 L Chloride 112 H Carbon Dioxide 24 BUN 16 Creatinine 1.24 Glucose 91 Calcium 7.9 L - VTE Documentation of Mechanical Device: Intermittent pneumatic compression device Consult Discharge Plan - Plan Referrals: NONE,PCP [Primary Care Provider] -
[2017-06-16] MEDS ORDERED: Potassium Chloride 20 MEQ, Lidocaine 1% 2 ML in D5% in Water 250 ML IVPB ONE (16:55)
[2017-06-16] MEDS: 0.9 % Sodium Chloride 250 ML IVC SCH (18:33)
[2017-06-16] MEDS: traMADol 50 MG TABLET PO PRN (19:57)
[2017-06-17] MEDS: *HR* Morphine 2 MG/ML SYRINGE IVP PRN ×3 (00:49→20:00)
[2017-06-17] MEDS: 0.9 % Sodium Chloride 250 ML IVC SCH ×2 (03:42→13:00)
[2017-06-17 04:30] LABS: Hematocrit 26.4 % (37.5-50.1); Hemoglobin 8.3 g/dL (12.9-16.9); Mean Corpuscular HGB Conc 31.4 g/dL (31.6-35.5); Mean Corpuscular Hemoglobin 27.1 pg (28.0-33.3); Mean Corpuscular Volume 86.3 fL (83.0-100.0); Mean Platelet Volume 12.6 fL (9.4-12.4); Platelet Count 209 K/mcL (140-400); Red Blood Count 3.06 M/mcL (4.19-5.50); Red Cell Distribution Width 16.3 % (11.5-14.5)
[2017-06-17 04:48] LABS: BUN/Creatinine Ratio 13 (6-26); Blood Urea Nitrogen 18 mg/dL (8-23); Calcium 7.9 mg/dL (8.6-10.3); Carbon Dioxide 26 mEq/L (23-29); Chloride 112 mEq/L (98-107); Glucose 103 mg/dL (70-105); Magnesium 1.9 mg/dL (1.6-2.6); Osmolality,Calculated 296 (280-300); Potassium 3.8 mEq/L (3.5-5.1); Sodium 142 mEq/L (136-145); eGFR For African Americans > 60 (> 60); eGFR For Non-African Americans 51 (> 60)
[2017-06-17] MEDS: Pantoprazole 40 MG VIAL IVP SCH ×2 (04:56→17:08)
[2017-06-17] MEDS: *HR* LORazepam 1 MG TABLET PO PRN ×3 (04:56→20:00)
--- NOTE | 2017-06-17 09:36 | Internal Med Progress Note ---
Date of Encounter: 06/17/17 Time of Encounter: 09:36 - Constitutional Vitals: Temp Pulse Resp BP Pulse Ox 98.2 F 69 18 187/90 98 06/17/17 08:12 06/17/17 08:12 06/17/17 08:12 06/17/17 08:12 06/17/17 08:12 General appearance: Present: A&O X 3, no acute distress Internal Medicine: Result - Labs CBC & Chem 7: 06/17/17 03:36 06/17/17 03:36 Labs: Short CBC 06/17/17 Range/Units 03:36 WBC 7.0 (4.3-11.1) K/mcL Hgb 8.3 L (12.9-16.9) g/dL Hct 26.4 L (37.5-50.1) % Plt Count 209 (140-400) K/mcL BMP 06/17/17 03:36 Sodium 142 Potassium 3.8 Chloride 112 H Carbon Dioxide 26 BUN 18 Creatinine 1.37 H Glucose 103 Calcium 7.9 L - VTE Documentation of Mechanical Device: Intermittent pneumatic compression device Consult Discharge Plan - Plan Referrals: NONE,PCP [Primary Care Provider] -
[2017-06-17] MEDS: traMADol 50 MG TABLET PO PRN ×3 (10:23→20:00)
--- NOTE | 2017-06-17 14:18 | Psychiatry Progress Note ---
Date of Encounter: 06/17/17 Time of Encounter: 13:35 Subjective Interval history: Marcus is seen today for follow-up of possible overdose and depression symptoms. Patient remains guarded and giving minimal information to this provider. He denies suicidal ideation. He denied that he was attempting to kill himself by taking too much medications. He does not want outpatient counseling or mental health follow-up with any kind. Staff had concerns about her speaking with patient's daughter, Camille, with whom the patient lives. Spoke with Camille ([phone]) she reports that she is very concerned about her father's mental health. She does believe he intentionally overdosed on multiple medications. Also, he did test positive for opiates at the outside facility before being transferred here to [facility] daughter reports he has no active prescription for opiate pain pills and that he is struggling with opiate addiction. She also reports that at home he is not eating or sleeping well. He does not shower without significant encouragement from her. She is concerned that he is very depressed and he will hurt himself again. He has never been hospitalized for depression but she reports that he did overdose 4 years ago in a similar manner. She also reports a stressor is that he has an upcoming court date for a DUI in [place] and she feels like he has "just given up." Review of Systems Psychiatric: Reports: irritability. Denies: depression, anxiety, suicidal ideation Objective: Exam Patient orientation: Yes Person, Yes Time, Yes Place Level of alertness: Alert Patient appearance: Appropriate Behavior: guarded Psychomotor activity: Normal Eye contact: Minimal Contact Mood description: Euthymic/stable Affect description: flat, incongruent with mood Speech pattern: Normal rate, Normal rhythm, Normal tone Speech volume: Normal Thought process: Intact, [place] Thought content: No Suicidal ideation, No Homicidal ideation Perceptual disturbances: No Auditory hallucinations, No Visual hallucinations Judgment: Limited Insight: Minimal Results - Vital Signs Vital Signs: Temp Pulse Resp BP Pulse Ox 98.3 F 84 15 168/82 98 06/17/17 12:04 06/17/17 12:04 06/17/17 12:04 06/17/17 12:04 06/17/17 12:04 - Labs Labs: Laboratory Results - last 24 hr 06/14/17 06/17/17 06/17/17 09:27 03:36 03:36 WBC 7.0 RBC 3.06 L Hgb 8.3 L Hct 26.4 L MCV 86.3 MCH 27.1 L MCHC 31.4 L RDW 16.3 H Plt Count 209 MPV 12.6 H Sodium 142 Potassium 3.8 Chloride 112 H Carbon Dioxide 26 BUN 18 Creatinine 1.37 H Est GFR ( Amer) > 60 Est GFR (Non-Af Amer) 51 L BUN/Creatinine Ratio 13 Glucose 103 Calculated Osmolality 296 Calcium 7.9 L Magnesium 1.9 Blood Type A POSITIVE Antibody Screen NEGATIVE Crossmatch See Detail - Impressions ITS Impressions Abdomen/Pelvis CT 06/15/17 05:27 IMPRESSION: There are multiple calculi in both kidneys and there is a tiny calculus in the urinary bladder. There is no hydronephrosis and there are no ureteral calculi at this time. D/ / Jacques Oviedo MD / Jacques Oviedo MD Interpreting Provider: Jacques Oviedo MD Assessment and Plan (1) Depression Current visit: Yes Status: Acute Plan: Continue hospitalization, Close observation, Suicide Precautions per unit protocol, Monitor sleep, Monitor appetite Additional Plan: Recommend one-to-one sitter as the patient does not want treatment for his depression. According to family, he may in fact try to hurt himself again and daughter is very concerned about his behavior prior to the overdose. We should admit to geriatric psychiatric facility for further stabilization once he is medically stable. [place] slip filled out. Risks, benefits, side effects, alternatives discussed w/pt: Yes Patient agreeable to treatment: Yes Qualifiers: Depression Type: major depressive disorder Major depression recurrence: recurrent Active/Remission status: currently active Major depression episode severity: severe Psychotic features: without psychotic features Qualified Code(s): F33.2 - Major depressive disorder, recurrent severe without psychotic features (2) Opiate dependence Current visit: Yes Status: Acute Plan: Continue hospitalization, Close observation, Suicide Precautions per unit protocol Additional Plan: Has apparently been taking pain pills even though he has no prescription. Daughter says that this is a chronic issue and he refuses rehabilitation. Qualifiers: Substance use status: uncomplicated Qualified Code(s): F11.20 - Opioid dependence, uncomplicated Consult Discharge Plan - Plan Referrals: NONE,PCP [Primary Care Provider] - (PATIENT DOESN'T WANT US TO FIND HIM A FAMILY DOCTOR)
--- NOTE | 2017-06-17 16:00 | Discharge Summary ---
<Jose Elias Carreno - Last Filed: 06/17/17 15:58> Date of Encounter: 06/17/17 Time of Encounter: 15:58 - Discharge Diagnosis (1) Clonidine overdose Priority: Primary Status: Acute Qualifiers: Encounter type: subsequent encounter Injury intent: undetermined intent Qualified Code(s): T46.5X4D - Poisoning by other antihypertensive drugs, undetermined, subsequent encounter (2) Melena Priority: Secondary Status: Acute (3) Suicidal behavior Priority: Secondary Status: Acute Qualifiers: Attempted self-injury: with attempted self-injury Qualified Code(s): T14.91XA - Suicide attempt, initial encounter (4) Acute blood loss anemia Priority: Secondary Status: Acute (5) Hypokalemia Priority: Secondary Status: Acute (6) NSAID overdose Priority: Secondary Status: Acute Qualifiers: Encounter type: subsequent encounter Injury intent: undetermined intent Qualified Code(s): T39.394D - Poisoning by other nonsteroidal anti-inflammatory drugs [NSAID], undetermined, subsequent encounter (7) CAD (coronary artery disease) Priority: Secondary Status: Chronic Qualifiers: Coronary Disease-Associated Artery/Lesion type: [place] artery [place] vs. transplanted heart: [place] heart Associated angina: without angina Qualified Code(s): I25.10 - Atherosclerotic heart disease of [place] coronary artery without angina pectoris (8) Hypertension Priority: Secondary Status: Chronic Qualifiers: Hypertension type: essential hypertension Qualified Code(s): I10 - Essential (primary) hypertension - Discharge Medications Home Medications: cloNIDine HCl [CloNIDine HCl] 0.1 mg PO BID #30 tablet 06/12/17 [Rx] Famotidine [Pepcid] 20 mg PO DAILY 06/15/17 [History] Ibuprofen 800 mg PO TID PRN 06/15/17 [History] Ondansetron ODT [Zofran ODT] 4 mg PO Q6H PRN 06/15/17 [History] LORazepam [Ativan] 1 mg PO TID PRN tablet 06/17/17 [Rx] Morphine [Morphine Sulfate] 2 mg IVP Q3H PRN syringe 06/17/17 [Rx] Naloxone [Narcan] 0.4 mg IVP Q2MIN PRN inj 06/17/17 [Rx] Pantoprazole [Protonix] 40 mg IVP Q12HR vial 06/17/17 [Rx] hydrALAZINE [HydrALAZINE] 10 mg IVP Q6HR PRN vial 06/17/17 [Rx] Allergies/Adverse Reactions: 3 Allergy/AdvReac Type Severity Reaction Status Date / Time acetaminophen AdvReac Fatigued Verified 06/12/17 17:33 codeine AdvReac Shakiness Verified 06/10/17 12:34 Procedures/tests Complete & Pending: Procedures Performed prior 72 hours Category Date Time Status CT abd pelvis wo no iv no oral [CT] Stat Cat Scan 06/15/17 05:27 Completed Date of admission: 06/15/17 06:14 Primary care physician: PCP NONE Consults: 06/15/17 06:13 Consult to Surgery [CONS] Routine Consulting Provider: [facility] Reason for Consult: GI bleed Call Completed: Yes 06/15/17 18:17 Consult to Psychiatry [CONS] Routine Consulting Provider: Psychiatry [facility] Reason for Consult: Evaluation for depression and suicidal thoughts Time Notified: 18:18 Call Completed: No 06/17/17 15:52 Consult to Sales Exhibitor [CONS] Stat Reason for SW Consult: [place] for geriatric psych - Patient Status Disposition: Transfer Psychiatric Hosp Condition: Fair Functional capacity at discharge: bed bound Overall status at discharge: patient is not back to baseline - Discharge Instructions Follow Up With: NONE,PCP [Primary Care Provider] - (PATIENT DOESN'T WANT US TO FIND HIM A FAMILY DOCTOR) Additional Instructions: patient to be transferred to Psychiatric unit 1A once bed is available - Diet and Activity Activity: increase activity as tolerated Hospital course: Mr. Dowling is a 72 year old male w/ hx of GI bleed presented to [facility] with complaints of epigastric discomroft and bilateral flank pain. Patient stated that he took unknown quanities of unknown medications. Surgery was consulted due to concern for Gi bleed. EGD was performed by dr Calvin marroquin with no active bleads visualized. As well an CT abd was performed that showed multiple calculi in both kidneys and a tiny calculus in the urinary bladder. Patient during hospitalization denied suicidial or homicidial ideations but due to conversations with daughter, and multiple concerns from various providers psychiatry was consulted. Patient remained inpatient for 4 days. Patient is medically stable and asymptomatic at this time. Patient to be transferred to Psychiatry unit 1A at [facility]. - Time Spent with Patient Total time spent providing and/or coordinating discharge services: - Constitutional Vitals: Temp Pulse Resp BP Pulse Ox 98.3 F 84 15 168/82 98 06/17/17 12:04 06/17/17 12:04 06/17/17 12:04 06/17/17 12:04 06/17/17 12:04 General appearance: Present: A&O X 3, no acute distress - Head Head exam: Present: atraumatic, normocephalic - Respiratory Respiratory exam: Present: CTAB. Absent: accessory muscle use, rales, rhonchi, wheezes - Cardiovascular Cardiovascular exam: Present: RRR, +S1, +S2. Absent: diastolic murmur, gallop, rubs, systolic murmur - GI/Abdominal GI/Abdominal exam: Present: normal bowel sounds, soft, no peritoneal signs. Absent: distended, tenderness - Psychiatric Psychiatric exam: Present: depressed, flat affect. Absent: homicidal ideation, manic Additional comments: patient was apprehensive during exam. - VTE Documentation of Mechanical Device: Intermittent pneumatic compression device <Rodger Escobar - Last Filed: 06/17/17 17:47> Date of Encounter: 06/17/17 - Discharge Diagnosis (1) Melena Priority: Primary Status: Acute (2) Acute blood loss anemia Status: Acute (3) Clonidine overdose Status: Suspected Qualifiers: Encounter type: subsequent encounter Injury intent: intentional self-harm Qualified Code(s): T46.5X2D - Poisoning by other antihypertensive drugs, intentional self-harm, subsequent encounter (4) NSAID overdose Status: Suspected Qualifiers: Encounter type: subsequent encounter Injury intent: intentional self-harm Qualified Code(s): T39.392D - Poisoning by other nonsteroidal anti- inflammatory drugs [NSAID], intentional self-harm, subsequent encounter (5) Hypokalemia Status: Resolved (6) Suicidal behavior Status: Acute Qualifiers: Attempted self-injury: with attempted self-injury Qualified Code(s): T14.91XA - Suicide attempt, initial encounter (7) Hypertension Status: Chronic Qualifiers: Hypertension type: essential hypertension Qualified Code(s): I10 - Essential (primary) hypertension (8) CAD (coronary artery disease) Status: Chronic Qualifiers: Coronary Disease-Associated Artery/Lesion type: [place] artery [place] vs. transplanted heart: [place] heart Associated angina: without angina Qualified Code(s): I25.10 - Atherosclerotic heart disease of [place] coronary artery without angina pectoris Procedures/tests Complete & Pending: Procedures Performed prior 72 hours Category Date Time Status CT abd pelvis wo no iv no oral [CT] Stat Cat Scan 06/15/17 05:27 Completed Date of admission: 06/15/17 06:14 Primary care physician: PCP NONE Consults: 06/15/17 06:13 Consult to Surgery [CONS] Routine Consulting Provider: [facility] Reason for Consult: GI bleed Call Completed: Yes 06/15/17 18:17 Consult to Psychiatry [CONS] Routine Consulting Provider: [facility] Reason for Consult: Evaluation for depression and suicidal thoughts Time Notified: 18:18 Call Completed: No 06/17/17 15:52 Consult to Sales Exhibitor [CONS] Stat Reason for SW Consult: [place] for geriatric psych Hospital course: Mr. Dowling is a 72 year old male - Time Spent with Patient Total time spent providing and/or coordinating discharge services: 38min - Constitutional Vitals: Temp Pulse Resp BP Pulse Ox 98.3 F 84 15 168/82 98 06/17/17 12:04 06/17/17 12:04 06/17/17 12:04 06/17/17 12:04 06/17/17 12:04 - Attending Attestation I examined this patient and my medical decision-making was reviewed with the Resident Physician on 06/17/17. I agree with the documented findings, disposition and treatment plan as described except to the extent set forth below. Mr Dowling has been admitted for acute OD of ibuprofen and clonidine. He has been evaluated by surgery and EGD done with biopsies pending. He has been evaluated by psychiatry and has been pink slipped. He is to be discharged to geriatric psych. Exam Alert. Comfortable Mucus membranes dry Heart reg No wheeze Plan D/C to geropsych Pt medically clear for discharge at this time.
[2017-06-17] MEDS ORDERED: *HR* LORazepam 2 MG/ML VIAL IVP ONE (22:06)
[2017-06-17] MEDS ORDERED: *HR* LORazepam 2 MG/ML VIAL ONE (22:11)
[2017-06-18] MEDS: *HR* Morphine 2 MG/ML SYRINGE IVP PRN ×3 (00:11→13:57)
[2017-06-18] MEDS: traMADol 50 MG TABLET PO PRN ×2 (03:04→07:36)
[2017-06-18] MEDS: Pantoprazole 40 MG VIAL IVP SCH (06:17)
[2017-06-18] MEDS: *HR* LORazepam 1 MG TABLET PO PRN ×3 (07:36→15:20)
--- NOTE | 2017-06-18 09:17 | Internal Med Progress Note ---
Addendum entered and electronically signed by Jose Elias Carreno DO 06/18/17 14:56: a+P updated (1) Suicidal behavior Current Visit: Yes Status: Acute Assessment and plan: Pt continues to deny suicidal ideation at this time but is very evasive in discussion. - patient waiting for inpatient geriatric psych bed, continues to be medically cleared Qualifiers: Attempted self-injury: with attempted self-injury Qualified Code(s): T14.91XA - Suicide attempt, initial encounter (2) Melena Current Visit: Yes Status: Acute Assessment and plan: No overt bleeding noted found on EGD. Most likely from NSAID overuse, resolved at this time (3) Clonidine overdose Current Visit: Yes Status: Suspected Assessment and plan: See above Qualifiers: Encounter type: subsequent encounter Injury intent: intentional self-harm Qualified Code(s): T46.5X2D - Poisoning by other antihypertensive drugs, intentional self-harm, subsequent encounter (4) Acute blood loss anemia Current Visit: No Status: Acute Assessment and plan: Hemoglobin 8.3 today. resolved No obvious bleeding noted. (5) Hypokalemia Current Visit: No Status: Resolved Assessment and plan: resolved (6) NSAID overdose Current Visit: No Status: Suspected Assessment and plan: hold all NSAIDS Qualifiers: Encounter type: subsequent encounter Injury intent: intentional self-harm Qualified Code(s): T39.392D - Poisoning by other nonsteroidal anti- inflammatory drugs [NSAID], intentional self-harm, subsequent encounter (7) CAD (coronary artery disease) Current Visit: No Status: Chronic Assessment and plan: Chronic issue Qualifiers: Coronary Disease-Associated Artery/Lesion type: [place] artery [place] vs. transplanted heart: [place] heart Associated angina: without angina Qualified Code(s): I25.10 - Atherosclerotic heart disease of [place] coronary artery without angina pectoris (8) Hypertension Current Visit: No Status: Chronic Assessment and plan: Chronic issue. restarted Clonidine yesterday and bp is ok today, needs to be weaned off. PCP should start other BP medication. Feel he is high risk for rebound HTN now and in future. Qualifiers: Hypertension type: essential hypertension Qualified Code(s): I10 - Essential (primary) hypertension Original Note: <Jose Elias Carreno - Last Filed: 06/18/17 09:14> Date of Encounter: 06/18/17 Time of Encounter: 09:14 - Assessment and plan (1) Suicidal behavior Current Visit: Yes Status: Acute Assessment and plan: Evaluated by psychiatry today. Pt denies suicidal ideation at this time but is very evasive in discussion. - patient waiting for inpatient geriatric psych bed, continues to be medically cleared Qualifiers: Attempted self-injury: with attempted self-injury Qualified Code(s): T14.91XA - Suicide attempt, initial encounter (2) Melena Current Visit: Yes Status: Acute Assessment and plan: Pt s/p EGD and biopsies today. No overt bleeding noted. No further procedures planned at this time. (3) Clonidine overdose Current Visit: Yes Status: Suspected Assessment and plan: See above Qualifiers: Encounter type: subsequent encounter Injury intent: intentional self-harm Qualified Code(s): T46.5X2D - Poisoning by other antihypertensive drugs, intentional self-harm, subsequent encounter (4) Acute blood loss anemia Current Visit: No Status: Acute Assessment and plan: Hemoglobin 7.7 today. Symptomatic at this time. Will give another unit of blood. No obvious bleeding noted. (5) Hypokalemia Current Visit: No Status: Resolved Assessment and plan: resolved Will give IV due to GI issues. (6) NSAID overdose Current Visit: No Status: Suspected Assessment and plan: Took multiple ibuprofen to "feel better." No NSAIDS now. Qualifiers: Encounter type: subsequent encounter Injury intent: intentional self-harm Qualified Code(s): T39.392D - Poisoning by other nonsteroidal anti- inflammatory drugs [NSAID], intentional self-harm, subsequent encounter (7) CAD (coronary artery disease) Current Visit: No Status: Chronic Assessment and plan: Chronic issue Qualifiers: Coronary Disease-Associated Artery/Lesion type: [place] artery [place] vs. transplanted heart: [place] heart Associated angina: without angina Qualified Code(s): I25.10 - Atherosclerotic heart disease of [place] coronary artery without angina pectoris (8) Hypertension Current Visit: No Status: Chronic Assessment and plan: Chronic issue. restarted Clonidine and bp is ok, needs to be weaned off. PCP should start other BP medication. Feel he is high risk for rebound HTN now and in future. Qualifiers: Hypertension type: essential hypertension Qualified Code(s): I10 - Essential (primary) hypertension - Subjective Interval history: Mr Dowling is a 72 yo M here for clonidine overdose. Patient is pink slipped and awaiting transfer to Geriatric Psych unit. Patient is unaware of pink slip as of now. No events overnight, or new complaints. He continues to have "kidney pains" and points to his lower back, and is requesting more pain medications. He reports "9/10" severity. - Constitutional Vitals: Temp Pulse Resp BP Pulse Ox 98.5 F 73 14 150/89 98 06/18/17 07:20 06/18/17 07:30 06/18/17 07:20 06/18/17 07:20 06/18/17 07:20 General appearance: Present: A&O X 3, no acute distress - Head Head exam: Present: atraumatic, normocephalic - Respiratory Respiratory exam: Present: CTAB. Absent: accessory muscle use, rales, rhonchi, wheezes - Cardiovascular Cardiovascular exam: Present: RRR, +S1, +S2. Absent: diastolic murmur, gallop, rubs, systolic murmur - GI/Abdominal GI/Abdominal exam: Present: normal bowel sounds, soft, no peritoneal signs. Absent: distended, tenderness - Back Exam Back exam: Present: full ROM, normal inspection. Absent: CVA tenderness (L), CVA tenderness (R), muscle spasm Internal Medicine: Result - Labs CBC & Chem 7: 06/17/17 03:36 06/17/17 03:36 - VTE Documentation of Mechanical Device: Intermittent pneumatic compression device Consult Discharge Plan - Plan Additional Instructions: patient to be transferred to Psychiatric unit 1A once bed is available Referrals: NONE,PCP [Primary Care Provider] - (PATIENT DOESN'T WANT US TO FIND HIM A FAMILY DOCTOR) <Rodger Escobar - Last Filed: 06/18/17 15:17> Date of Encounter: 06/18/17 - Assessment and plan (1) Melena Current Visit: Yes Status: Acute (2) Acute blood loss anemia Current Visit: No Status: Acute (3) Clonidine overdose Current Visit: Yes Status: Suspected Qualifiers: Encounter type: subsequent encounter Injury intent: intentional self-harm Qualified Code(s): T46.5X2D - Poisoning by other antihypertensive drugs, intentional self-harm, subsequent encounter (4) NSAID overdose Current Visit: No Status: Suspected Qualifiers: Encounter type: subsequent encounter Injury intent: intentional self-harm Qualified Code(s): T39.392D - Poisoning by other nonsteroidal anti- inflammatory drugs [NSAID], intentional self-harm, subsequent encounter (5) Suicidal behavior Current Visit: Yes Status: Acute Qualifiers: Attempted self-injury: with attempted self-injury Qualified Code(s): T14.91XA - Suicide attempt, initial encounter (6) Hypertension Current Visit: No Status: Chronic Qualifiers: Hypertension type: essential hypertension Qualified Code(s): I10 - Essential (primary) hypertension (7) CAD (coronary artery disease) Current Visit: No Status: Chronic Qualifiers: Coronary Disease-Associated Artery/Lesion type: [place] artery [place] vs. transplanted heart: [place] heart Associated angina: without angina Qualified Code(s): I25.10 - Atherosclerotic heart disease of [place] coronary artery without angina pectoris - Constitutional Vitals: Temp Pulse Resp BP Pulse Ox 97.9 F 74 14 164/81 96 06/18/17 11:10 06/18/17 11:10 06/18/17 11:10 06/18/17 11:10 06/18/17 11:10 Internal Medicine: Result - Labs CBC & Chem 7: 06/17/17 03:36 06/17/17 03:36 - Impressions Impressions Chest X-Ray 06/18/17 10:14 IMPRESSION: No acute cardiopulmonary abnormality. D/ / Jaswinder Haines / Jaswinder Haines Interpreting Provider: Jaswinder Haines Head CT 06/18/17 10:15 IMPRESSION: No acute intracranial abnormality. Stable mild cerebral volume loss and white matter disease, the latter of which likely reflects sequela of chronic microvascular ischemia. D/ / Jaswinder Haines / Jaswinder Haines Interpreting Provider: Jaswinder Haines - Attending Attestation I examined this patient and my medical decision-making was reviewed with the Resident Physician on 06/18/17. I agree with the documented findings, disposition and treatment plan as described except to the extent set forth below. Mr Dowling is currently admitted for polysubstance OD and suicidal ideation. He now has a sitter and remains moderate risk. He is awaiting a bed at [facility]. Mr Dowling feels oK. No fever. Denies dyspnea. Continues to request IV pain meds. Exam Alert. Comfortable Mucus membranes dry Heart reg No wheeze Abd soft I/P 1. Polysubstance OD (clonidine and ibuprofen) 2. Suicidal intent Awaiting [facility] Further diagnoses and plan as above.
[2017-06-18] MEDS ORDERED: Naloxone 0.4 MG/ML INJ IVP PRN (09:55)
[2017-06-18] MEDS ORDERED: 0.9 % Sodium Chloride 250 ML IVC SCH (09:55)
[2017-06-18] MEDS ORDERED: traMADol 50 MG TABLET PO PRN (09:55)
[2017-06-18 11:15] VITALS: BP 164/81
[2017-06-18] MEDS ORDERED: Pantoprazole 40 MG VIAL IVP SCH (18:00)
--- NOTE | 2017-06-19 08:23 | Electrocardiograph Report ---
[place] [id number] Test Date: 2017-06-18 Pat Name: Marcus Dowling Department: 115 Room: 3A35 Gender: M Welder Machine Operator: : 1945 Requested By: Tab Mancia Order Number: [id number] Reading MD: Fidencio Cisneros MD Measurements Intervals [place] Rate: 73 P: -4 IA: 134 QRS: 0 QRSD: 108 T: 46 QT: 395 QTc: 420 Interpretive Statements SINUS RHYTHM Electronically Signed On 06-19-2017 8:21:51 EST by Fidencio Cisneros MD
== END 2017-06-18 15:50 | DRG 918 ==
LOC: 2NNU → SUATTDRO 06-15 06:14 → 3ANU 06-18 10:28
PROVIDERS: ADMIT Pediatrics; ATTEND Internal Medicine
PROC: ENDOEBX (2017-06-16 10:00)

== ENCOUNTER 2017-06-21 12:29 | Inpatient (IN) ==
[2017-06-21] MEDS ORDERED: Naloxone 0.4 MG/ML INJ IVP PRN (20:09)
[2017-06-21] MEDS ORDERED: Pantoprazole 40 MG VIAL IVP ONE (20:12)
--- NOTE | 2017-06-21 20:14 | Internal Med History&Physical ---
Date of Encounter: 06/21/17 Time of Encounter: 20:14 Assessment and Plan (1) Acute blood loss anemia Current visit: No Status: Acute GI Bleed management below (2) Melena Current visit: No Status: Acute GI bleed management per below (3) GI bleed Current visit: No Status: Suspected d/w surgery - Dr Lord. Will see in a.m Conservative management overnight with IVF, clears, protonix gtt, trend H&H, check PT/PTT, type and screen tele, pulse ox Qualifiers: GI bleed type/associated pathology: unspecified gastrointestinal hemorrhage type Qualified Code(s): K92.2 - Gastrointestinal hemorrhage, unspecified (4) Hypertension Current visit: No Status: Chronic continue clonidine Qualifiers: Hypertension type: essential hypertension Qualified Code(s): I10 - Essential (primary) hypertension (5) Depression Current visit: No Status: Acute recently suicidal and seen by psych Will order sitter and repeat psych eval for suicide clearance he tells me he wishes to live and has no current intention to harm himself Qualifiers: Depression Type: major depressive disorder Major depression recurrence: recurrent Active/Remission status: currently active Major depression episode severity: severe Psychotic features: without psychotic features Qualified Code(s): F33.2 - Major depressive disorder, recurrent severe without psychotic features (6) Back pain Current visit: Yes Status: Acute PO oxycodone Qualifiers: Back pain location: low back pain Chronicity: chronic Sciatica presence: without sciatica Qualified Code(s): M54.5 - Low back pain; G89.29 - Other chronic pain; G89.29 - Other chronic pain Internal Medicine - H&P: HPI Chief complaint: Anemia History of present illness: Mr. Dowling is a 72 year old male who presents as a transfer from [facility] for anemia, melena suspicious for ongoing UGIB. He was here last week with the same and had been investigated with an EGD by Dr Stewart without evidence of active bleed but only noted erosions. He a co-morbid suicidal psych issue overdosing on clonidine and had been seen by psych who rec psych facility and further management. He was discharged from [facility] 06/17/17. He reported rebounded back to healthcare facility at [facility] around 06/20/17 with anemia and reported anemia needing repeat blood transfusion. A tagged RBC scan done on 06/20/17 was w/o evidence of active bleeding. On review of patient hx, he reports "kidney" and epigastric region discomfort. He reported that his stools were dark and black for the last few days and were formed. No diarrhea per his report. He tells me he wishes to live and denies being suicidal at current time. He tells me he gets anxious witih nerves issue and needed pain meds for back pain. Past Med Surg Social Fam HX - Past Medical History Medical history: aortic aneurysm, coronary artery disease, hyperlipidemia, hypertension, kidney stones, myocardial infarction Psychiatric history: depression - Past Surgical History Surgical History: herniorrhaphy, vascular surgery, other - Social History Smoking Status: Former smoker Smokeless Tobacco Status: No Alcohol use: rarely Drug use: none - Family History Mother Living Status: Hx Family Cardiac Disorders: Yes (DC) Father Adopted: No Living Status: Hx Family Cancer: Yes (Skin cancer) Internal Medicine - H&P: Meds cloNIDine HCl [CloNIDine HCl] 0.1 mg PO BID #30 tablet 06/12/17 [Rx] Famotidine [Pepcid] 20 mg PO DAILY 06/15/17 [History] Ibuprofen 800 mg PO TID PRN 06/15/17 [History] Ondansetron ODT [Zofran ODT] 4 mg PO Q6H PRN 06/15/17 [History] LORazepam [Ativan] 1 mg PO TID PRN tablet 06/17/17 [Rx] Morphine [Morphine Sulfate] 2 mg IVP Q3H PRN syringe 06/17/17 [Rx] Naloxone [Narcan] 0.4 mg IVP Q2MIN PRN inj 06/17/17 [Rx] Pantoprazole [Protonix] 40 mg IVP Q12HR vial 06/17/17 [Rx] hydrALAZINE [HydrALAZINE] 10 mg IVP Q6HR PRN vial 06/17/17 [Rx] 3 Allergy/AdvReac Type Severity Reaction Status Date / Time acetaminophen AdvReac Fatigued Verified 06/12/17 17:33 codeine AdvReac Shakiness Verified 06/10/17 12:34 All Systems PM: A 10-system review of systems was performed and is negative for pertinent findings except as documented above in the HPI. Review of systems: ROS 14 point review of systems reviewed as best as possible given presentation. Pertinent positive or negative as per HPI or otherwise reviewed as negative - Constitutional Vitals: Temp Pulse Resp BP Pulse Ox 98.7 F 97 20 150/64 97 06/21/17 19:22 06/21/17 19:22 06/21/17 19:22 06/21/17 19:22 06/21/17 19:22 Exam: General - AAO x 3 Psych - Appropriate affect/speech. No agitation Eyes - MORENA. Eye lids intact. No scleral icterus Neuro - No gross peripheral or central neuro deficits on inspection Heart - Sinus. RRR. S1 and S2 present. No added HS/murmurs appreciated. No elevated JVD appreciated. Lung - Adequate air entry b/l, No crackles/wheezes appreciated GI - Epigastric and scott-umbilical discomfort. No hepatosplenomegaly/ascites. BS + - No CVA/suprapubic tenderness or palpable bladder distension Skin - Intact. No rash/petechiae/ecchymosis. Warm extremities MSK - Joints with normal ROM. No joint swellings
[2017-06-21 20:48] LABS: Hematocrit 19.4 % (37.5-50.1)
[2017-06-21 20:54] LABS: Hemoglobin 6.5 g/dL (12.9-16.9)
[2017-06-21] MEDS ORDERED: cloNIDine HCl 0.1 MG TABLET PO SCH (21:00)
[2017-06-21] MEDS: *HR* OxyCODONE Immed Rel 5 MG TABLET PO PRN (21:06)
[2017-06-21] MEDS: *HR* LORazepam 1 MG TABLET PO PRN (21:06)
[2017-06-21] MEDS: Pantoprazole 40 MG in 0.9 % Sodium Chloride Mini Bag 100 ML IVC SCH (21:07)
[2017-06-21] MEDS: Ringers Solution, Lactated 1,000 ML IVC SCH (21:07)
[2017-06-22 00:49] LABS: INR 1.3; Prothrombin Time 14.5 Seconds (9.4-12.1)
[2017-06-22 00:52] LABS: Activated Partial Thrombo Time 26.3 Seconds (26.0-36.0)
[2017-06-22 01:25] LABS: BUN/Creatinine Ratio 36 (6-26); Blood Urea Nitrogen 39 mg/dL (8-23); Calcium 7.3 mg/dL (8.6-10.3); Carbon Dioxide 22 mEq/L (23-29); Chloride 114 mEq/L (98-107); Glucose 111 mg/dL (70-105); Osmolality,Calculated 296 (280-300); Potassium 4.1 mEq/L (3.5-5.1); Sodium 138 mEq/L (136-145); eGFR For African Americans > 60 (> 60); eGFR For Non-African Americans > 60 (> 60)
[2017-06-22 01:33] LABS: Basophils % 0.2 %; Eosinophils # 0.2 K/mcL (0.0-0.6); Eosinophils % 1.4 %; Hematocrit 17.8 % (37.5-50.1); Immature Granulocytes % 0.6 % (0-4); Lymphocytes # 2.4 K/mcL (0.6-4.6); Lymphocytes % 21.8 %; Mean Corpuscular HGB Conc 33.1 g/dL (31.6-35.5); Mean Corpuscular Hemoglobin 30.1 pg (28.0-33.3); Mean Corpuscular Volume 90.8 fL (83.0-100.0); Mean Platelet Volume 11.5 fL (9.4-12.4); Monocytes # 0.5 K/mcL (0.0-1.3); Neutrophils # 7.7 K/mcL (1.6-8.9); Red Blood Count 1.96 M/mcL (4.19-5.50); Red Cell Distribution Width 16.1 % (11.5-14.5)
[2017-06-22 01:34] LABS: Platelet Count 85 K/mcL (140-400)
[2017-06-22 01:36] LABS: Hemoglobin 5.9 g/dL (12.9-16.9)
[2017-06-22 02:01] LABS: Anisocytosis 1+ (Not Present); Platelet Estimate Decreased (Normal)
[2017-06-22] MEDS ORDERED: 0.9 % Sodium Chloride 500 ML ONE (02:01)
[2017-06-22 02:02] LABS: Burr Cells 1+ (Not Present); Hypochromasia Present (Not Present); Polychromasia 2+ (Not Present)
[2017-06-22] MEDS: *HR* Promethazine 25 MG/ML VIAL IVP PRN ×2 (02:06→20:31)
[2017-06-22] MEDS: *HR* LORazepam 1 MG TABLET PO PRN ×3 (02:06→18:06)
[2017-06-22] MEDS: *HR* OxyCODONE Immed Rel 5 MG TABLET PO PRN ×4 (02:59→21:12)
[2017-06-22] MEDS: Pantoprazole 40 MG in 0.9 % Sodium Chloride Mini Bag 100 ML IVC SCH ×4 (03:38→19:27)
[2017-06-22 06:41] LABS: Hematocrit 20.7 % (37.5-50.1); Hemoglobin 6.9 g/dL (12.9-16.9)
[2017-06-22] MEDS: Ringers Solution, Lactated 1,000 ML IVC SCH (07:34)
--- NOTE | 2017-06-22 07:47 | Internal Med Progress Note ---
Date of Encounter: 06/23/17 Time of Encounter: 07:47 - Subjective Interval history: HPI: 72 year old man transfer from [facility] for anemia, melena suspicious for ongoing UGIB. He had an EGD 06/16/17 (6 days ago) by Dr Stewart without evidence of active bleed, however erosions were noted. He was discharged from [facility] 06/17/17. Admitted to [facility] around 06/20/17 with anemia requiring blood transfusion. A tagged RBC scan done on 06/20/17 was w/o evidence of active bleeding. He reported that his stools were dark and black for the last few days. Comorbid conditions include; aortic aneurysm, coronary artery disease, hyperlipidemia, hypertension, kidney stones, myocardial infarction, suicidal ideations, history of overdose on Clonidine Assessment and Plan (1) Acute blood loss anemia GI Bleed management below (2) Melena GI bleed management per below (3) GI bleed Dr Lord of Gen Surgery consulted. Continue IVFs NPO Protonix gtt started Continue trending H&H Check PT/PTT Type and screen ontinue telemetry and pulse ox (4) Hypotention: Likely secondary to blood loss Hold Clonidine Give 500 ml fluid bolus Continue LR at 100 ml/hr (5) Essential HTN: Holding Clonidine (6) Depression Recently suicidal and seen by psych Order sitter and repeat psych eval for suicide clearance - Constitutional Vitals: Temp Pulse Resp BP Pulse Ox 98.3 F 72 14 115/69 100 06/22/17 07:34 06/22/17 07:37 06/22/17 07:34 06/22/17 07:34 06/22/17 07:34 General appearance: Present: A&O X 3, pleasant, no acute distress - Head Head exam: Present: atraumatic, normocephalic - Eye Eye exam: Present: EOMI, PERRL, conjuntiva pink, sclera anicteric. Absent: periorbital swelling, periorbital tenderness, scleral icterus Pupils: Present: PERRL - Neck Neck exam general surgery: Present: supple, trachea midline. Absent: lymphadenopathy - Respiratory Respiratory exam: Present: CTAB. Absent: accessory muscle use, rales, rhonchi, stridor, wheezes - Cardiovascular Cardiovascular exam: Present: RRR, +S1, +S2. Absent: diastolic murmur, gallop, rubs, systolic murmur - GI/Abdominal GI/Abdominal exam: Present: normal bowel sounds, soft, no peritoneal signs. Absent: distended, firm, guarding, tenderness - Extremities Exam Extremities exam: Present: warm, radial pulses palpable and symmetrical. Absent : calf tenderness, cyanotic, pedal edema - Neurological Exam Neurological exam: Present: CN II-XII intact, oriented X3, no focal deficits. Absent: pronater drift, facial droop, speech deficit - Skin Skin exam: Present: dry, intact Internal Medicine: Result - Labs CBC & Chem 7: 06/22/17 20:50 06/22/17 00:20 Labs: Short CBC 06/21/17 06/22/17 06/22/17 Range/Units 20:38 01:25 06:12 WBC 10.8 D (4.3-11.1) K/mcL Hgb 6.5 L D 5.9 L* 6.9 L (12.9-16.9) g/dL Hct 19.4 L 17.8 L 20.7 L (37.5-50.1) % Plt Count 85 L D (140-400) K/mcL Neutrophils # 7.7 (1.6-8.9) K/mcL BMP 06/22/17 00:20 Sodium 138 Potassium 4.1 Chloride 114 H Carbon Dioxide 22 L BUN 39 H Creatinine 1.09 Glucose 111 H Calcium 7.3 L - ABG Interpretation ABG results: PT/INR, D-dimer PT 14.5 Seconds (9.4-12.1) H 06/22/17 00:20 Consult Discharge Plan - Plan Referrals: NONE,PCP [Primary Care Provider] - Priya Prajapati MD [Partnered Physician] - (Follow-up with Dr. Prajapati as soon as possible for Karimi's esophagus with high grade dysplasia. )
[2017-06-22] MEDS ORDERED: Ringers Solution, Lactated 500 ML IVC ONE (08:05)
[2017-06-22 09:03] LABS: Hematocrit 22.3 % (37.5-50.1); Hemoglobin 7.2 g/dL (12.9-16.9)
--- NOTE | 2017-06-22 12:35 | General Surgery Consult Note ---
<Mami Dobson - Last Filed: 06/22/17 13:05> Date of Encounter: 06/22/17 Time of Encounter: 12:33 Assessment and Plan (1) Acute blood loss anemia Current Visit: No Status: Acute Continue Conservative management overnight with IVF, clear liquid, protonix gtt , trend H&H MD Terry performed EGD Reviewed EGD, pathology report Continue to monitor CBC Dr. Lord reviewed pathology results with patient and recommended follow up with Dr. Prajapati for evaluation for endoscopic and mucosal ulcerations Recommend pt start on carafate Continue protonix Will follow from a distance (2) Anemia Current Visit: No Status: Acute Plan as above. Qualifiers: Anemia type: unspecified type Qualified Code(s): D64.9 - Anemia, unspecified (3) Karimi esophagus Current Visit: Yes Status: Acute Recommend that patient follow up with Dr. Prajapati. Noted in Discharge planning. Qualifiers: Karimi's esophagus type: with high grade dysplasia Qualified Code(s): K22.711 - Karimi's esophagus with high grade dysplasia (4) Depression Current Visit: No Status: Acute Management per primary and psych. Qualifiers: Depression Type: major depressive disorder Major depression recurrence: recurrent Active/Remission status: currently active Major depression episode severity: severe Psychotic features: without psychotic features Qualified Code(s): F33.2 - Major depressive disorder, recurrent severe without psychotic features History of Present Illness Consult date: 06/22/17 Reason for consult: other (Anemia) Requesting physician: Desi Mclaughlin History of present illness: Mr. Dowling is a 72 year old male who presents as a transfer from [facility] for anemia and melena. Pt was recently admitted for same complaint and completed an EGD on 06/16/[address] Stewart with localized moderate mucosal variance characterized by granularity at the GE junction and a few localized erosions without bleeding in the duodenal. Pathology has resulted for biopsies, with esophagogastric junction positive for Barretts esophagus with at low grade and focal high grade dysplasia. Pt denies abdominal pain, but endorses that "kidneys". Pt has co-morbid suicidal psych issue overdosing on clonidine and had been seen by psych who recommended psych facility and further management. He was discharged from [facility] 06/17/17. He arrived at [place] a few days later with with Hbg of 5.9 at [place] on transfer, s/p blood transfusion and a tagged RBC scan, on 06/20/17, which did not show evidence of active bleeding. Past Med Surg Social Fam HX - Past Medical History Medical history: aortic aneurysm, coronary artery disease, hyperlipidemia, hypertension, kidney stones, myocardial infarction Psychiatric history: depression - Past Surgical History Surgical History: herniorrhaphy, vascular surgery, other - Social History Smoking Status: Former smoker Smokeless Tobacco Status: No Alcohol use: rarely Drug use: none - Family History Mother Living Status: Hx Family Cardiac Disorders: Yes ([place]) Father Adopted: No Living Status: Hx Family Cancer: Yes (Skin cancer) Medications and Allergies cloNIDine HCl [CloNIDine HCl] 0.1 mg PO BID #30 tablet 06/12/17 [Rx] Famotidine [Pepcid] 20 mg PO DAILY 06/15/17 [History] Ibuprofen 800 mg PO TID PRN 06/15/17 [History] Ondansetron ODT [Zofran ODT] 4 mg PO Q6H PRN 06/15/17 [History] LORazepam [Ativan] 1 mg PO TID PRN tablet 06/17/17 [Rx] Benzonatate [Tessalon] 200 mg PO TID PRN 06/22/17 [History] Calcium Carbonate [Tums] 500 mg PO Q1H PRN MDD 15 TAB MAX 06/22/17 [History] Chloraseptic [place] [Chloraseptic] 2 spray MM Q2H PRN 06/22/17 [History] Pantoprazole Sodium 40 mg PO DAILY 06/22/17 [History] Promethazine [Phenergan] 25 mg PO Q4H PRN 06/22/17 [History] Sodium Chloride/Aloe Vera [[place] Saline Nasal Gel [place]] 2 spr NS Q15M PRN [History] guaiFENesin [Child Mucinex Chest Congestion] 100 mg PO QID PRN 06/22/17 [History ] 3 Allergy/AdvReac Type Severity Reaction Status Date / Time acetaminophen AdvReac Fatigued Verified 06/12/17 17:33 codeine AdvReac Shakiness Verified 06/10/17 12:34 Review of Systems All systems PM: As documented above in the HPI. General Surgery Exam Initial Vital Signs Temp Pulse Resp BP Pulse Ox 98.7 F 95 16 130/78 99 06/21/17 19:00 06/21/17 19:00 06/21/17 19:00 06/21/17 19:00 06/21/17 19:00 - General physical appearance other (eating lunch, sitting upright, thin) - Respiratory normal expansion, normal respiratory effort, clear to auscultation - Cardiovascular Cardiovascular exam: Present: RRR, no murmurs/rubs/gallops - Abdomen Abdomen general surgery: Present: bowel sounds present, soft, non tender - Psychiatric Psychiatric general surgery: Present: tearful Exam Initial Vital Signs Temp Pulse Resp BP Pulse Ox 98.7 F 95 16 130/78 99 06/21/17 19:00 06/21/17 19:00 06/21/17 19:00 06/21/17 19:00 06/21/17 19:00 Results - Labs 06/22/17 08:46 06/22/17 00:20 Abnormal lab results RBC 1.96 M/mcL (4.19-5.50) L 06/22/17 01:25 Hgb 7.2 g/dL (12.9-16.9) L 06/22/17 08:46 Hct 22.3 % (37.5-50.1) L 06/22/17 08:46 RDW 16.1 % (11.5-14.5) H 06/22/17 01:25 Plt Count 85 K/mcL (140-400) L D 06/22/17 01:25 Platelet Estimate Decreased (Normal) L 06/22/17 01:25 Polychromasia 2+ (Not Present) A 06/22/17 01:25 Hypochromasia Present (Not Present) A 06/22/17 01:25 Anisocytosis 1+ (Not Present) A 06/22/17 01:25 Sylva Cells 1+ (Not Present) A 06/22/17 01:25 PT 14.5 Seconds (9.4-12.1) H 06/22/17 00:20 Chloride 114 mEq/L (98-107) H 06/22/17 00:20 Carbon Dioxide 22 mEq/L (23-29) L 06/22/17 00:20 BUN 39 mg/dL (8-23) H 06/22/17 00:20 BUN/Creatinine Ratio 36 (6-26) H 06/22/17 00:20 Glucose 111 mg/dL (70-105) H 06/22/17 00:20 Calcium 7.3 mg/dL (8.6-10.3) L 06/22/17 00:20 Diabetes panel 06/22/17 Range/Units 00:20 Sodium 138 (136-145) mEq/L Potassium 4.1 (3.5-5.1) mEq/L Chloride 114 H (98-107) mEq/L Carbon Dioxide 22 L (23-29) mEq/L BUN 39 H (8-23) mg/dL Creatinine 1.09 (0.70-1.30) mg/dL Glucose 111 H (70-105) mg/dL Calcium 7.3 L (8.6-10.3) mg/dL Calcium panel 06/22/17 Range/Units 00:20 Calcium 7.3 L (8.6-10.3) mg/dL Pituitary panel 06/22/17 Range/Units 00:20 Sodium 138 (136-145) mEq/L Potassium 4.1 (3.5-5.1) mEq/L Chloride 114 H (98-107) mEq/L Carbon Dioxide 22 L (23-29) mEq/L BUN 39 H (8-23) mg/dL Creatinine 1.09 (0.70-1.30) mg/dL Glucose 111 H (70-105) mg/dL Calcium 7.3 L (8.6-10.3) mg/dL Adrenal panel 06/22/17 Range/Units 00:20 Sodium 138 (136-145) mEq/L Potassium 4.1 (3.5-5.1) mEq/L Chloride 114 H (98-107) mEq/L Carbon Dioxide 22 L (23-29) mEq/L BUN 39 H (8-23) mg/dL Creatinine 1.09 (0.70-1.30) mg/dL Glucose 111 H (70-105) mg/dL Calcium 7.3 L (8.6-10.3) mg/dL All other labs normal. - Imaging Additional studies: Surgical Pathology Report [Continued, Page 2] Name: Marcus Dowling Junior Patient Name: Marcus Dowling Junior Page 2 of 2 [facility] Department of Pathology [address] [place] [address] [place] [address] Patient Name: Marcus Dowling Junior Page 1 of 2 Final Diagnosis: A. Duodenal bulb, biopsy: Fibrinopurulent exudate consistent with ulcer bed. B. Stomach, granular mucosa, biopsy: No diagnostic abnormality (deeper sections examined). C. Esophagogastric junction, biopsy: Barretts esophagus with at low grade and focal high grade dysplasia. See comment. Comment: The biopsy from the esophagogastric junction shows a discrete focus of adenoma-like low grade dysplasia as well as closely spaced small glands with luminal necrosis and focally marked nuclear atypia underneath squamous epithelium. Dictated by: Aneudy Mosley MD Consult Discharge Plan - Plan Referrals: NONE,PCP [Primary Care Provider] - Priya Prajapati MD [Partnered Physician] - (Follow-up with Dr. Prajapati as soon as possible for Karimi's esophagus with high grade dysplasia. ) <Yeni Lord - Last Filed: 06/22/17 13:41> Date of Encounter: 06/22/17 Assessment and Plan (1) Karimi's esophagus with high grade dysplasia Current Visit: Yes Status: Chronic discussed biopsy results with patient and Dr Prajapati who will see patient as outpatient to discuss EMR versus radiofrequency ablation patient will need followup with Dr Prajapati upon D/C he must stay on him protonix (2) Depression Current Visit: Yes Status: Acute Qualifiers: Depression Type: unspecified Qualified Code(s): F32.9 - Major depressive disorder, single episode, unspecified (3) Acute blood loss anemia Current Visit: No Status: Acute patient Hb has increased with transfusion but am unclear how many units PRBC were transfused at [facility] will monitor Hb and if were to decline I can rescope continue protonix and carafate 1 gm po QID (4) Melena Current Visit: No Status: Acute patient had melena for a few days, no bm since admission History of Present Illness History of present illness: Patient complains of a few days of melanotic stools. Hb check an outpatient facility and found to be 5.9. It is unclear whether the patient was transfused blood or how much. He was transferred here to [facility]. He was transfused 1 unit of blood while here. Hemoglobin today is 7.2. He is complaining of mild mid abdominal pain. Patient states this has been going on for a few days. He has never had a colonoscopy and denies any hernias. No nausea or emesis and is tolerating his clear lunch. He has been on PPI gtt since admission. Denies any epigastric pain. No nausea or emesis. Past Med Surg Social Fam HX - Past Medical History Source: patient - Past Surgical History Surgical History: vascular surgery (endovascular AAA repair) Review of Systems All systems PM: reviewed and no additional remarkable complaints except as stated All systems PM: A 10-system review of systems was performed and is negative for pertinent findings except as documented above in the HPI. - Constitutional as per HPI General Surgery Exam Initial Vital Signs Temp Pulse Resp BP Pulse Ox 98.7 F 95 16 130/78 99 06/21/17 19:00 06/21/17 19:00 06/21/17 19:00 06/21/17 19:00 06/21/17 19:00 - General physical appearance well developed, no distress - Eyes PERRL, normal ocular movement - ENT normal mucosa, normocephalic - Neck trachea midline - Respiratory normal expansion, normal respiratory effort - Cardiovascular Cardiovascular exam: Present: RRR - Abdomen Abdomen general surgery: Present: bowel sounds present, soft, tender (mild mid abdomen tenderness). Absent: guarding, rebound - Integumentary Integumentary general surgery: Present: warm and dry, no abnormal pigmentation - Neurologic Present: CN 2-12 grossly intact - Musculoskeletal Present: normal gait, normal posture - Psychiatric Psychiatric general surgery: Present: A&Ox3 Exam Initial Vital Signs Temp Pulse Resp BP Pulse Ox 98.7 F 95 16 130/78 99 06/21/17 19:00 06/21/17 19:00 06/21/17 19:00 06/21/17 19:00 06/21/17 19:00 Results - Labs 06/22/17 08:46 06/22/17 00:20 Abnormal lab results RBC 1.96 M/mcL (4.19-5.50) L 06/22/17 01:25 Hgb 7.2 g/dL (12.9-16.9) L 06/22/17 08:46 Hct 22.3 % (37.5-50.1) L 06/22/17 08:46 RDW 16.1 % (11.5-14.5) H 06/22/17 01:25 Plt Count 85 K/mcL (140-400) L D 06/22/17 01:25 Platelet Estimate Decreased (Normal) L 06/22/17 01:25 Polychromasia 2+ (Not Present) A 06/22/17 01:25 Hypochromasia Present (Not Present) A 06/22/17 01:25 Anisocytosis 1+ (Not Present) A 06/22/17 01:25 Sylva Cells 1+ (Not Present) A 06/22/17 01:25 PT 14.5 Seconds (9.4-12.1) H 06/22/17 00:20 Chloride 114 mEq/L (98-107) H 06/22/17 00:20 Carbon Dioxide 22 mEq/L (23-29) L 06/22/17 00:20 BUN 39 mg/dL (8-23) H 06/22/17 00:20 BUN/Creatinine Ratio 36 (6-26) H 06/22/17 00:20 Glucose 111 mg/dL (70-105) H 06/22/17 00:20 Calcium 7.3 mg/dL (8.6-10.3) L 06/22/17 00:20 Diabetes panel 06/22/17 Range/Units 00:20 Sodium 138 (136-145) mEq/L Potassium 4.1 (3.5-5.1) mEq/L Chloride 114 H (98-107) mEq/L Carbon Dioxide 22 L (23-29) mEq/L BUN 39 H (8-23) mg/dL Creatinine 1.09 (0.70-1.30) mg/dL Glucose 111 H (70-105) mg/dL Calcium 7.3 L (8.6-10.3) mg/dL Calcium panel 06/22/17 Range/Units 00:20 Calcium 7.3 L (8.6-10.3) mg/dL Pituitary panel 06/22/17 Range/Units 00:20 Sodium 138 (136-145) mEq/L Potassium 4.1 (3.5-5.1) mEq/L Chloride 114 H (98-107) mEq/L Carbon Dioxide 22 L (23-29) mEq/L BUN 39 H (8-23) mg/dL Creatinine 1.09 (0.70-1.30) mg/dL Glucose 111 H (70-105) mg/dL Calcium 7.3 L (8.6-10.3) mg/dL Adrenal panel 06/22/17 Range/Units 00:20 Sodium 138 (136-145) mEq/L Potassium 4.1 (3.5-5.1) mEq/L Chloride 114 H (98-107) mEq/L Carbon Dioxide 22 L (23-29) mEq/L BUN 39 H (8-23) mg/dL Creatinine 1.09 (0.70-1.30) mg/dL Glucose 111 H (70-105) mg/dL Calcium 7.3 L (8.6-10.3) mg/dL All other labs normal. - Attending Attestation I examined this patient and my medical decision-making was reviewed with the Resident Physician. I agree with the documented findings, disposition and treatment plan as described except to the extent set forth below.
[2017-06-22 13:59] LABS: Hematocrit 19.7 % (37.5-50.1); Hemoglobin 6.4 g/dL (12.9-16.9)
[2017-06-22] MEDS: Sucralfate 1 GM TABLET PO SCH ×2 (15:56→20:31)
--- NOTE | 2017-06-22 17:00 | Consult Note ---
Date of Encounter: 06/22/17 Time of Encounter: 16:00 Assessment & Recommendation (1) Suicidal behavior Current visit: No Status: Resolved Assessment & Recommendation: The patient is a reluctant historian nonetheless we have no objective evidence of suicidal action or suicidal behavior. Consequently the sitter can be discontinued. Nursing staff can continue to observe and call back if there is any worry about this. This point patient should continue with medical and surgical care feel free to consult us if you feel he needs to be evaluated for further psychiatric care Qualifiers: Attempted self-injury: with attempted self-injury Qualified Code(s): T14.91XA - Suicide attempt, initial encounter (2) Depression Current visit: No Status: Resolved Qualifiers: Depression Type: major depressive disorder Major depression recurrence: recurrent Active/Remission status: currently active Major depression episode severity: severe Psychotic features: without psychotic features Qualified Code(s): F33.2 - Major depressive disorder, recurrent severe without psychotic features History of Present Illness Requesting Physician: Urszula Boucher MD Reason for consult: SI History of present illness: Mr. Dowling is a 72 year old male He is a reluctant historian. He has been in the hospital for short period of time and denies any suicidal ideation. Patient is able to state that he is here for blood loss. The patient reports no new mood symptoms no trouble with drinking. Today he has complained of pain. The patient is able to identify that he has a stent in the heart that he has a GI bleed he notes no known allergies and no medications. He reports his family history is negative for psychiatric illness alcohol drug abuse suicide. Social history reveals patient will stay with his daughter. He is retired from the [employer] and retired about 5 years ago. He describes that he is more hopeful he denies feeling nervous Lomotil difficulty with his imagination or memory. Does have not attending confucianism is not using alcohol or drugs. He did not discuss the previous hospitalization this consult is to evaluate the need for sitter CC: Urszula Boucher MD Past Med Surg Social Fam HX - Past Medical History Medical history: aortic aneurysm, coronary artery disease, hyperlipidemia, hypertension, kidney stones, myocardial infarction - Past Surgical History Surgical History: vascular surgery (endovascular AAA repair) - Social History Smoking Status: Former smoker Smokeless Tobacco Status: No Alcohol use: rarely Drug use: none - Family History Mother Living Status: Hx Family Cardiac Disorders: Yes ([place]) Father Adopted: No Living Status: Hx Family Cancer: Yes (Skin cancer) Medications & Allergies cloNIDine HCl [CloNIDine HCl] 0.1 mg PO BID #30 tablet 06/12/17 [Rx] Famotidine [Pepcid] 20 mg PO DAILY 06/15/17 [History] Ibuprofen 800 mg PO TID PRN 06/15/17 [History] Ondansetron ODT [Zofran ODT] 4 mg PO Q6H PRN 06/15/17 [History] LORazepam [Ativan] 1 mg PO TID PRN tablet 06/17/17 [Rx] Benzonatate [Tessalon] 200 mg PO TID PRN 06/22/17 [History] Calcium Carbonate [Tums] 500 mg PO Q1H PRN MDD 15 TAB MAX 06/22/17 [History] Chloraseptic [place] [Chloraseptic] 2 spray MM Q2H PRN 06/22/17 [History] Pantoprazole Sodium 40 mg PO DAILY 06/22/17 [History] Promethazine [Phenergan] 25 mg PO Q4H PRN 06/22/17 [History] Sodium Chloride/Aloe Vera [[place] Saline Nasal Gel [place]] 2 spr NS Q15M PRN [History] guaiFENesin [Child Mucinex Chest Congestion] 100 mg PO QID PRN 06/22/17 [History ] 3 Allergy/AdvReac Type Severity Reaction Status Date / Time acetaminophen AdvReac Fatigued Verified 06/12/17 17:33 codeine AdvReac Shakiness Verified 06/10/17 12:34 Mental Status Exam Patient orientation: Yes Person, Yes Time, Yes Place Level of alertness: Alert Patient appearance: Appropriate, Well Groomed Behavior: calm, cooperative Psychomotor activity: Slowed Eye contact: Maintains Eye Contact Mood description: Euthymic/stable Affect description: congruent with mood Speech pattern: Normal rate, Normal rhythm, Normal tone Speech volume: Normal Thought process: Linear, Goal Oriented Thought content: No Suicidal ideation, No Homicidal ideation, No Overt delusions Perceptual disturbances: No Auditory hallucinations, No Visual hallucinations Attention span: Capable of Focused Attention Memory description: Grossly Intact Patient reliability: Reliable Historian Intelligence estimate: Average Judgment: Fair Insight: Partial Results - Vital Signs Vital signs: Temp Pulse Resp BP Pulse Ox 98.3 F 81 14 134/72 98 06/22/17 16:02 06/22/17 16:02 06/22/17 16:02 06/22/17 16:02 06/22/17 16:02 - Labs Labs: Laboratory Last Values WBC 10.8 K/mcL (4.3-11.1) D 06/22/17 01:25 RBC 1.96 M/mcL (4.19-5.50) L 06/22/17 01:25 Hgb 6.4 g/dL (12.9-16.9) L 06/22/17 13:42 Hct 19.7 % (37.5-50.1) L 06/22/17 13:42 MCV 90.8 fL (83.0-100.0) 06/22/17 01:25 MCH 30.1 pg (28.0-33.3) 06/22/17 01:25 MCHC 33.1 g/dL (31.6-35.5) 06/22/17 01:25 RDW 16.1 % (11.5-14.5) H 06/22/17 01:25 Plt Count 85 K/mcL (140-400) L D 06/22/17 01:25 MPV 11.5 fL (9.4-12.4) 06/22/17 01:25 Immature Gran % 0.6 % (0-4) 06/22/17 01:25 Seg Neutrophils % 71.0 % 06/22/17 01:25 Lymphocytes % 21.8 % 06/22/17 01:25 Monocytes % 5.0 % 06/22/17 01:25 Eosinophils % 1.4 % 06/22/17 01:25 Basophils % 0.2 % 06/22/17 01:25 Neutrophils # 7.7 K/mcL (1.6-8.9) 06/22/17 01:25 Lymphocytes # 2.4 K/mcL (0.6-4.6) 06/22/17 01:25 Monocytes # 0.5 K/mcL (0.0-1.3) 06/22/17 01:25 Eosinophils # 0.2 K/mcL (0.0-0.6) 06/22/17 01:25 Basophils # 0.0 K/mcL (0.0-0.2) 06/22/17 01:25 Platelet Estimate Decreased (Normal) L 06/22/17 01:25 Polychromasia 2+ (Not Present) A 06/22/17 01:25 Hypochromasia Present (Not Present) A 06/22/17 01:25 Anisocytosis 1+ (Not Present) A 06/22/17 01:25 [place] Cells 1+ (Not Present) A 06/22/17 01:25 PT 14.5 Seconds (9.4-12.1) H 06/22/17 00:20 INR 1.3 06/22/17 00:20 APTT 26.3 Seconds (26.0-36.0) 06/22/17 00:20 Sodium 138 mEq/L (136-145) 06/22/17 00:20 Potassium 4.1 mEq/L (3.5-5.1) 06/22/17 00:20 Chloride 114 mEq/L (98-107) H 06/22/17 00:20 Carbon Dioxide 22 mEq/L (23-29) L 06/22/17 00:20 BUN 39 mg/dL (8-23) H 06/22/17 00:20 Creatinine 1.09 mg/dL (0.70-1.30) 06/22/17 00:20 Est GFR ( Amer) > 60 (> 60) 06/22/17 00:20 Est GFR (Non-Af Amer) > 60 (> 60) 06/22/17 00:20 BUN/Creatinine Ratio 36 (6-26) H 06/22/17 00:20 Glucose 111 mg/dL (70-105) H 06/22/17 00:20 Calculated Osmolality 296 (280-300) 06/22/17 00:20 Calcium 7.3 mg/dL (8.6-10.3) L 06/22/17 00:20 Blood Type A POSITIVE 06/22/17 00:20 Antibody Screen NEGATIVE 06/22/17 00:20 Crossmatch See Detail 06/22/17 00:20 Consult Discharge Plan - Plan Referrals: NONE,PCP [Primary Care Provider] - Priya Prajapati MD [Partnered Physician] - (Follow-up with Dr. Prajapati as soon as possible for Karimi's esophagus with high grade dysplasia. )
[2017-06-22] MEDS: Ondansetron 4 MG/2 ML VIAL IVP PRN (19:27)
[2017-06-22 21:06] LABS: Hematocrit 19.5 % (37.5-50.1); Hemoglobin 6.4 g/dL (12.9-16.9)
[2017-06-23] MEDS: Pantoprazole 40 MG in 0.9 % Sodium Chloride Mini Bag 100 ML IVC SCH ×8 (01:27→23:08)
[2017-06-23] MEDS: *HR* OxyCODONE Immed Rel 5 MG TABLET PO PRN ×3 (04:32→23:07)
[2017-06-23] MEDS: *HR* Promethazine 25 MG/ML VIAL IVP PRN (04:33)
[2017-06-23] MEDS: *HR* LORazepam 1 MG TABLET PO PRN ×2 (04:33→16:21)
[2017-06-23 04:58] LABS: Hematocrit 19.4 % (37.5-50.1); Hemoglobin 6.3 g/dL (12.9-16.9)
[2017-06-23 05:01] LABS: Immature Granulocytes % 0.6 % (0-4); Segmented Neutrophils % 67.6 %
[2017-06-23 05:03] LABS: Basophils % 0.3 %; Eosinophils # 0.2 K/mcL (0.0-0.6); Eosinophils % 2.7 %; Hematocrit 19.6 % (37.5-50.1); Hemoglobin 6.2 g/dL (12.9-16.9); Immature Platelets 8.7 % (1.1-6.1); Lymphocytes # 1.6 K/mcL (0.6-4.6); Lymphocytes % 22.3 %; Mean Corpuscular HGB Conc 31.6 g/dL (31.6-35.5); Mean Corpuscular Hemoglobin 29.7 pg (28.0-33.3); Mean Corpuscular Volume 93.8 fL (83.0-100.0); Mean Platelet Volume 12.4 fL (9.4-12.4); Monocytes # 0.5 K/mcL (0.0-1.3); Monocytes % 6.5 %; Red Blood Count 2.09 M/mcL (4.19-5.50); Red Cell Distribution Width 16.5 % (11.5-14.5)
[2017-06-23 05:11] LABS: Neutrophils # 4.7 K/mcL (1.6-8.9); Platelet Count 81 K/mcL (140-400)
[2017-06-23] MEDS: Sucralfate 1 GM TABLET PO SCH ×4 (08:08→21:14)
[2017-06-23 08:28] LABS: Hematocrit 20.3 % (37.5-50.1); Hemoglobin 6.5 g/dL (12.9-16.9)
[2017-06-23 09:06] LABS: BUN/Creatinine Ratio 14 (6-26); Blood Urea Nitrogen 16 mg/dL (8-23); Calcium 7.7 mg/dL (8.6-10.3); Carbon Dioxide 25 mEq/L (23-29); Chloride 112 mEq/L (98-107); Glucose 94 mg/dL (70-105); Osmolality,Calculated 295 (280-300); Potassium 4.1 mEq/L (3.5-5.1); Sodium 142 mEq/L (136-145); eGFR For African Americans > 60 (> 60); eGFR For Non-African Americans > 60 (> 60)
--- NOTE | 2017-06-23 12:51 | Internal Med Progress Note ---
Date of Encounter: 06/23/17 Time of Encounter: 12:49 - Subjective Interval history: HPI: 72 year old man transfer from [facility] for anemia, melena suspicious for ongoing UGIB. He had an EGD 06/16/17 (6 days ago) by Dr Stewart without evidence of active bleed, however erosions were noted. He was discharged from [facility] 06/17/17. Admitted to [facility] around 06/20/17 with anemia requiring blood transfusion. A tagged RBC scan done on 06/20/17 was w/o evidence of active bleeding. He reported that his stools were dark and black for the last few days. Comorbid conditions include; aortic aneurysm, coronary artery disease, hyperlipidemia, hypertension, kidney stones, myocardial infarction, suicidal ideations, history of overdose on Clonidine Assessment and Plan Acute blood loss anemia Evaluated by surgery who did his last scope Surgery signed off today Tried to consult GI today as his Hgb dropped again following transfusion. Told we cant get GI consult on wk-end 2 Units PRBS ordered (3 total since admission and previously given 8 units before admission at outside hospital) Check haptoglobin, fractionated luci and Bennie No bowel movement since admission Daughter states same pattern at outside hospital...No BM for days following multiple units of PRBC and large amount of bloody stool GI bleed Dr Lodr of Gen Surgery consulted. Continue IVFs Keep NPO Protonix drip started following loading dose Continue trending H&H Type and screen sent Continue telemetry and pulse ox Karimi's esophagus with high grade dysplasia Bx results explained by surgery to pt and daughter He will need followup with Dr Prajapati after D/C per surgery He will need to stay on protonix Hypotention: Likely secondary to blood loss Continue holding Clonidine Given 500 ml fluid bolus and oon IVF at 100 ml/hr. Essential HTN: Holding Clonidine Depression Recently suicidal and seen by psych Psych cleared him - Constitutional Vitals: Temp Pulse Resp BP Pulse Ox 98.1 F 79 16 139/77 98 06/23/17 12:39 06/23/17 12:39 06/23/17 12:39 06/23/17 12:39 06/23/17 12:39 General appearance: Present: A&O X 3, pleasant, no acute distress Exam: Very tremulous and depressed but not in acute distress - Head Head exam: Present: atraumatic, normocephalic - Eye Eye exam: Present: PERRL, conjuntiva pink, sclera anicteric. Absent: conjunctival injection, EOMI, periorbital swelling, periorbital tenderness, scleral icterus Pupils: Present: PERRL - Neck Neck exam general surgery: Present: supple, trachea midline. Absent: lymphadenopathy - Respiratory Respiratory exam: Present: CTAB. Absent: accessory muscle use, rales, rhonchi, wheezes - Cardiovascular Cardiovascular exam: Present: RRR, +S1, +S2. Absent: diastolic murmur, gallop, rubs, systolic murmur - GI/Abdominal GI/Abdominal exam: Present: normal bowel sounds, soft, no peritoneal signs. Absent: diminished bowel sounds, distended, firm, guarding, tenderness - Extremities Exam Extremities exam: Present: warm, radial pulses palpable and symmetrical. Absent : calf tenderness, cyanotic, pedal edema - Neurological Exam Neurological exam: Present: CN II-XII intact, oriented X3, no focal deficits. Absent: pronater drift, facial droop, speech deficit - Skin Skin exam: Present: dry, intact Internal Medicine: Result - Labs CBC & Chem 7: 06/23/17 13:42 06/23/17 07:46 Labs: Short CBC 06/22/17 06/22/17 06/23/17 Range/Units 13:42 20:50 04:18 WBC (4.3-11.1) K/mcL Hgb 6.4 L 6.4 L 6.3 L (12.9-16.9) g/dL Hct 19.7 L 19.5 L 19.4 L (37.5-50.1) % Plt Count (140-400) K/mcL Neutrophils # (1.6-8.9) K/mcL 06/23/17 06/23/17 Range/Units 04:18 07:46 WBC 7.0 (4.3-11.1) K/mcL Hgb 6.2 L 6.5 L (12.9-16.9) g/dL Hct 19.6 L 20.3 L (37.5-50.1) % Plt Count 81 L (140-400) K/mcL Neutrophils # 4.7 (1.6-8.9) K/mcL BMP 06/23/17 07:46 Sodium 142 Potassium 4.1 Chloride 112 H Carbon Dioxide 25 BUN 16 Creatinine 1.15 Glucose 94 Calcium 7.7 L - ABG Interpretation ABG results: PT/INR, D-dimer PT 14.5 Seconds (9.4-12.1) H 06/22/17 00:20 - VTE Documentation of Mechanical Device: Venous foot pump, device Consult Discharge Plan - Plan Referrals: NONE,PCP [Primary Care Provider] - Priya Prajapati MD [Partnered Physician] - (Follow-up with Dr. Prajapati as soon as possible for Karimi's esophagus with high grade dysplasia. )
[2017-06-23 13:56] LABS: Hemoglobin 6.6 g/dL (12.9-16.9)
[2017-06-23 14:12] LABS: Bilirubin,Direct 0.1 mg/dL (0.0-0.2); Bilirubin,Indirect 0.5 mg/dL (0.0-1.2); Bilirubin,Total 0.6 mg/dL (0.3-1.0)
--- NOTE | 2017-06-23 14:58 | General Surgery Progress Note ---
Date of Encounter: 06/23/17 Time of Encounter: 14:55 - Assessment and Plan (1) Karimi's esophagus with high grade dysplasia Current Visit: Yes Status: Chronic discussed biopsy results with patient and Dr Prajapati who will see patient as outpatient to discuss EMR versus radiofrequency ablation patient will need followup with Dr Prajapati upon D/C he must stay on him protonix discussed results with patients daughter today with his permission (2) Depression Current Visit: Yes Status: Acute psychiatry is seeing patient, patients daughter would like to have a family meeting with psychiatry if possible Qualifiers: Depression Type: unspecified Qualified Code(s): F32.9 - Major depressive disorder, single episode, unspecified (3) Acute blood loss anemia Current Visit: No Status: Acute Hb stable but still low at 6.2, agree with transfusing 2 more units of blood, would stop q 6 H/H and just check daily or if symptomatic continue PPI/carafate Subjective Narrative: patient complains of not feeling well, when probed hes states he has no energy and is tired, denies pain, no nausea Objective Vital Signs - Last 8 Hours Temp Pulse Resp BP Pulse Ox 06/23/17 12:39 98.1 F 79 16 139/77 98 06/23/17 08:16 79 06/23/17 07:16 97.7 F 76 18 118/64 97 Intake and Output 06/22/17 06/23/17 06/23/17 23:59 07:59 15:59 Intake Total 460 / 460 850 / 850 450 / 450 Output Total 1525 / 1525 1675 / 1675 950 / 950 Balance -1065 / -1065 -825 / -825 -500 / -500 Intake: IV Fluids 100 / 100 200 / 200 100 / 100 Protonix 40 MG In 0.9 % Sodium 100 / 100 200 / 200 100 / 100 Chloride (Mini-Bag +) 100 ML @ 20 mls/hr IVC .Q5H SHREE Rx#: [id number] Oral 360 / 360 650 / 650 350 / 350 Output: Urine 1525 / 1525 1675 / 1675 950 / 950 Other: Meal Dinner Breakfast Percent of Meal Consumed 50% # Voids 4 # Bowel Movements 0 # Bowel Movement Diapers 0 Weight 74.3 kg Patient Weight 06/23/17 23:59 Weight 74.3 kg - General physical appearance well nourished, no distress - Eyes normal ocular movement - ENT normal mucosa, normocephalic - Neck Neck exam: trachea midline - Respiratory normal expansion, normal respiratory effort - Cardiovascular Cardiovascular exam: Present: RRR - Integumentary no growths - Neurologic CN 2-12 grossly intact - Musculoskeletal normal posture - Psychiatric oriented to time, oriented to place, memory intact - Labs 06/23/17 13:42 06/23/17 07:46 Diabetes panel 06/23/17 Range/Units 07:46 Sodium 142 (136-145) mEq/L Potassium 4.1 (3.5-5.1) mEq/L Chloride 112 H (98-107) mEq/L Carbon Dioxide 25 (23-29) mEq/L BUN 16 (8-23) mg/dL Creatinine 1.15 (0.70-1.30) mg/dL Glucose 94 (70-105) mg/dL Calcium 7.7 L (8.6-10.3) mg/dL Calcium panel 06/23/17 Range/Units 07:46 Calcium 7.7 L (8.6-10.3) mg/dL Pituitary panel 06/23/17 Range/Units 07:46 Sodium 142 (136-145) mEq/L Potassium 4.1 (3.5-5.1) mEq/L Chloride 112 H (98-107) mEq/L Carbon Dioxide 25 (23-29) mEq/L BUN 16 (8-23) mg/dL Creatinine 1.15 (0.70-1.30) mg/dL Glucose 94 (70-105) mg/dL Calcium 7.7 L (8.6-10.3) mg/dL Adrenal panel 06/23/17 06/23/17 Range/Units 07:46 13:42 Sodium 142 (136-145) mEq/L Potassium 4.1 (3.5-5.1) mEq/L Chloride 112 H (98-107) mEq/L Carbon Dioxide 25 (23-29) mEq/L BUN 16 (8-23) mg/dL Creatinine 1.15 (0.70-1.30) mg/dL Glucose 94 (70-105) mg/dL Calcium 7.7 L (8.6-10.3) mg/dL Total Bilirubin 0.6 (0.3-1.0) mg/dL - VTE Documentation of Mechanical Device: Venous foot pump, device Consult Discharge Plan - Plan Referrals: NONE,PCP [Primary Care Provider] - Priya Prajapati MD [Partnered Physician] - (Follow-up with Dr. Prajaapti as soon as possible for Karimi's esophagus with high grade dysplasia. )
[2017-06-23] MEDS ORDERED: 0.9 % Sodium Chloride 250 ML ONE (16:38)
[2017-06-24] MEDS: *HR* LORazepam 1 MG TABLET PO PRN ×4 (00:01→23:54)
[2017-06-24 03:54] LABS: Basophils % 0.3 %; Eosinophils # 0.2 K/mcL (0.0-0.6); Eosinophils % 2.3 %; Hematocrit 27.7 % (37.5-50.1); Immature Granulocytes % 0.4 % (0-4); Lymphocytes # 1.8 K/mcL (0.6-4.6); Lymphocytes % 25.6 %; Mean Corpuscular HGB Conc 31.4 g/dL (31.6-35.5); Mean Corpuscular Hemoglobin 29.4 pg (28.0-33.3); Mean Corpuscular Volume 93.6 fL (83.0-100.0); Mean Platelet Volume 11.8 fL (9.4-12.4); Monocytes # 0.4 K/mcL (0.0-1.3); Monocytes % 5.8 %; Neutrophils # 4.5 K/mcL (1.6-8.9); Platelet Count 100 K/mcL (140-400); Red Blood Count 2.96 M/mcL (4.19-5.50); Red Cell Distribution Width 16.2 % (11.5-14.5); Segmented Neutrophils % 65.6 %
[2017-06-24 03:57] LABS: Hemoglobin 8.7 g/dL (12.9-16.9)
[2017-06-24] MEDS: Pantoprazole 40 MG in 0.9 % Sodium Chloride Mini Bag 100 ML IVC SCH ×4 (05:28→21:09)
[2017-06-24] MEDS: *HR* OxyCODONE Immed Rel 5 MG TABLET PO PRN ×4 (05:28→23:54)
[2017-06-24 07:19] LABS: Basophils % 0.5 %; Eosinophils # 0.2 K/mcL (0.0-0.6); Eosinophils % 2.6 %; Hemoglobin 8.6 g/dL (12.9-16.9); Immature Granulocytes % 0.5 % (0-4); Lymphocytes # 1.6 K/mcL (0.6-4.6); Lymphocytes % 24.1 %; Mean Corpuscular HGB Conc 33.1 g/dL (31.6-35.5); Mean Corpuscular Hemoglobin 30.5 pg (28.0-33.3); Mean Corpuscular Volume 92.2 fL (83.0-100.0); Mean Platelet Volume 11.8 fL (9.4-12.4); Monocytes # 0.5 K/mcL (0.0-1.3); Monocytes % 7.7 %; Neutrophils # 4.3 K/mcL (1.6-8.9); Platelet Count 102 K/mcL (140-400); Red Blood Count 2.82 M/mcL (4.19-5.50); Red Cell Distribution Width 16.4 % (11.5-14.5); Segmented Neutrophils % 64.6 %
[2017-06-24] MEDS: Sucralfate 1 GM TABLET PO SCH ×4 (08:03→21:00)
[2017-06-24 09:51] LABS: BUN/Creatinine Ratio 9 (6-26); Blood Urea Nitrogen 11 mg/dL (8-23); Calcium 7.8 mg/dL (8.6-10.3); Carbon Dioxide 26 mEq/L (23-29); Chloride 109 mEq/L (98-107); Glucose 97 mg/dL (70-105); Osmolality,Calculated 287 (280-300); Potassium 4.1 mEq/L (3.5-5.1); Sodium 139 mEq/L (136-145); eGFR For African Americans > 60 (> 60); eGFR For Non-African Americans 57 (> 60)
--- NOTE | 2017-06-24 19:32 | Internal Med Progress Note ---
Date of Encounter: 06/24/17 Time of Encounter: 16:40 - Subjective Interval history: HPI: 72 year old man transfer from [facility] for anemia, melena suspicious for ongoing UGIB. He had an EGD 06/16/17 (6 days ago) by Dr Stewart without evidence of active bleed, however erosions were noted. He was discharged from [facility] 06/17/17. Admitted to [place] around 06/20/17 with anemia requiring blood transfusion. A tagged RBC scan done on 06/20/17 was w/o evidence of active bleeding. He reported that his stools were dark and black for the last few days. Comorbid conditions include; aortic aneurysm, coronary artery disease, hyperlipidemia, hypertension, kidney stones, myocardial infarction, suicidal ideations, history of overdose on Clonidine Interval changes: A&O x3 in NAD Hgb improved today No melena General appearance: Present: A&O X 3, pleasant, no acute distress Exam: Very tremulous and depressed but not in acute distress - Head Head exam: Present: atraumatic, normocephalic - Eye Eye exam: Present: PERRL, conjuntiva pink, sclera anicteric. Absent: conjunctival injection, EOMI, periorbital swelling, periorbital tenderness, scleral icterus Pupils: Present: PERRL - Neck Neck exam general surgery: Present: supple, trachea midline. Absent: lymphadenopathy - Respiratory Respiratory exam: Present: CTAB. Absent: accessory muscle use, rales, rhonchi, wheezes - Cardiovascular Cardiovascular exam: Present: RRR, +S1, +S2. Absent: diastolic murmur, gallop, rubs, systolic murmur - GI/Abdominal GI/Abdominal exam: Present: normal bowel sounds, soft, no peritoneal signs. Absent: diminished bowel sounds, distended, firm, guarding, tenderness - Extremities Exam Extremities exam: Present: warm, radial pulses palpable and symmetrical. Absent : calf tenderness, cyanotic, pedal edema - Neurological Exam Neurological exam: Present: CN II-XII intact, oriented X3, no focal deficits. Absent: pronater drift, facial droop, speech deficit - Skin Skin exam: Present: dry, intact Assessment and Plan Acute blood loss anemia Evaluated by surgery who did his last scope Surgery signed off today Tried to consult GI today as his Hgb dropped again following transfusion. Told we cant get GI consult on wk-end 2 Units PRBS ordered (3 total since admission and previously given 8 units before admission at outside hospital) Check haptoglobin, fractionated luci and Bennie No bowel movement since admission Daughter states same pattern at outside hospital...No BM for days following multiple units of PRBC and large amount of bloody stool GI bleed Dr Lord of Gen Surgery consulted. Continue IVFs Keep NPO Protonix drip started following loading dose Continue trending H&H Type and screen sent Continue telemetry and pulse ox Karimi's esophagus with high grade dysplasia Bx results explained by surgery to pt and daughter He will need followup with Dr Prajapati after D/C per surgery He will need to stay on protonix Hypotention: Likely secondary to blood loss Continue holding Clonidine Given 500 ml fluid bolus and oon IVF at 100 ml/hr. Essential HTN: Holding Clonidine Depression Recently suicidal and seen by psych Psych cleared him - Constitutional Vitals: Temp Pulse Resp BP Pulse Ox 98.2 F 80 18 190/81 96 06/24/17 18:43 06/24/17 18:43 06/24/17 18:43 06/24/17 18:43 06/24/17 18:43 General appearance: Present: A&O X 3, pleasant, no acute distress Internal Medicine: Result - Labs CBC & Chem 7: 06/24/17 06:56 06/24/17 06:56 Labs: Short CBC 06/24/17 06/24/17 Range/Units 03:24 06:56 WBC 6.9 6.6 (4.3-11.1) K/mcL Hgb 8.7 L D 8.6 L (12.9-16.9) g/dL Hct 27.7 L 26.0 L (37.5-50.1) % Plt Count 100 L 102 L (140-400) K/mcL Neutrophils # 4.5 4.3 (1.6-8.9) K/mcL BMP 06/24/17 06:56 Sodium 139 Potassium 4.1 Chloride 109 H Carbon Dioxide 26 BUN 11 Creatinine 1.25 Glucose 97 Calcium 7.8 L - ABG Interpretation ABG results: PT/INR, D-dimer PT 14.5 Seconds (9.4-12.1) H 06/22/17 00:20 - VTE Documentation of Mechanical Device: Venous foot pump, device Consult Discharge Plan - Plan Referrals: NONE,PCP [Primary Care Provider] - Priya Prajapati MD [Partnered Physician] - (Follow-up with Dr. Prajapati as soon as possible for Karimi's esophagus with high grade dysplasia. )
[2017-06-25] MEDS: Pantoprazole 40 MG in 0.9 % Sodium Chloride Mini Bag 100 ML IVC SCH ×3 (02:46→07:41)
[2017-06-25 07:17] LABS: Basophils % 0.5 %; Eosinophils # 0.2 K/mcL (0.0-0.6); Eosinophils % 3.2 %; Hemoglobin 9.3 g/dL (12.9-16.9); Immature Granulocytes % 0.3 % (0-4); Lymphocytes # 1.3 K/mcL (0.6-4.6); Lymphocytes % 20.8 %; Mean Corpuscular HGB Conc 32.1 g/dL (31.6-35.5); Mean Corpuscular Hemoglobin 29.6 pg (28.0-33.3); Mean Corpuscular Volume 92.4 fL (83.0-100.0); Mean Platelet Volume 12.3 fL (9.4-12.4); Monocytes # 0.5 K/mcL (0.0-1.3); Monocytes % 7.3 %; Neutrophils # 4.3 K/mcL (1.6-8.9); Platelet Count 114 K/mcL (140-400); Red Blood Count 3.14 M/mcL (4.19-5.50); Segmented Neutrophils % 67.9 %
[2017-06-25] MEDS: Sucralfate 1 GM TABLET PO SCH ×4 (08:05→20:17)
[2017-06-25] MEDS: *HR* OxyCODONE Immed Rel 5 MG TABLET PO PRN ×3 (08:05→20:17)
[2017-06-25] MEDS: *HR* LORazepam 1 MG TABLET PO PRN ×2 (10:38→16:41)
[2017-06-25] MEDS ORDERED: *HR* LORazepam 1 MG TABLET PO ONE (12:44)
--- NOTE | 2017-06-25 12:48 | Internal Med Progress Note ---
Date of Encounter: 06/25/17 Time of Encounter: 12:46 - Assessment and plan (1) GI bleed Current Visit: No Status: Suspected Assessment and plan: Seems to have resolved now. Hemoglobin is 9.3. He needed transfusions while hospitalized. He was transfused yesterday. If His hemoglobin remains stable he can be discharged tomorrow with follow-up with GI. Stop Protonix drips and switched to oral PPI. He is also on Pepcid Qualifiers: GI bleed type/associated pathology: unspecified gastrointestinal hemorrhage type Qualified Code(s): K92.2 - Gastrointestinal hemorrhage, unspecified (2) Acute blood loss anemia Current Visit: No Status: Acute Assessment and plan: Plan as above. No need to transfuse. (3) Hypertension Current Visit: No Status: Chronic Assessment and plan: The patient's blood pressure is elevated. He is uncontrolled. I see his clonidine has been held. I will resume that. He also has hydralazine IV ordered when necessary. Qualifiers: Hypertension type: essential hypertension Qualified Code(s): I10 - Essential (primary) hypertension (4) Karimi esophagus Current Visit: Yes Status: Acute Assessment and plan: We will put the patient on oral Protonix. Stop Protonix drip. He is also on Carafate and Pepcid. Qualifiers: Karimi's esophagus type: with high grade dysplasia Qualified Code(s): K22.711 - Karimi's esophagus with high grade dysplasia (5) DVT prophylaxis Current Visit: Yes Status: Acute Assessment and plan: SCDs - Subjective Interval history: No acute events. The patient was admitted initially with GI bleed. This seems to be resolving now. He has had a bowel movement yesterday that he tells me it looked normal. He needed transfusion yesterday. His hemoglobin is stable this morning. Blood pressures on the higher side. Denies any pain. He tells me he is restless. - Constitutional Vitals: Temp Pulse Resp BP Pulse Ox 98.0 F 104 20 180/97 95 06/25/17 11:34 06/25/17 11:59 06/25/17 11:59 06/25/17 11:34 06/25/17 11:59 General appearance: Present: A&O X 3, pleasant, no acute distress Exam: GEN: NAD. Seems anxious. CVS: RRR. S1, S2, No m/r/g RESP: CTAB ABD: Soft, NT, ND, +BS EXT: No edema. 2+ DP. No rashes NEURO: Nonfocal Internal Medicine: Result - Labs CBC & Chem 7: 06/25/17 06:30 06/24/17 06:56 Labs: Short CBC 06/25/17 Range/Units 06:30 WBC 6.3 (4.3-11.1) K/mcL Hgb 9.3 L (12.9-16.9) g/dL Hct 29.0 L (37.5-50.1) % Plt Count 114 L (140-400) K/mcL Neutrophils # 4.3 (1.6-8.9) K/mcL - ABG Interpretation ABG results: PT/INR, D-dimer PT 14.5 Seconds (9.4-12.1) H 06/22/17 00:20 - VTE Documentation of Mechanical Device: Venous foot pump, device Consult Discharge Plan - Plan Referrals: NONE,PCP [Primary Care Provider] - (no family doctor and he does not want me to find him one) Priya Prajapati MD [Partnered Physician] - (Follow-up with Dr. Prajapati as soon as possible for Karimi's esophagus with high grade dysplasia. SENT WEB REQUEST ON 06-25-17 @0900)
[2017-06-25] MEDS: Famotidine 20 MG TABLET PO SCH (13:15)
[2017-06-25] MEDS: cloNIDine HCl 0.1 MG TABLET PO SCH ×2 (13:16→20:18)
[2017-06-25 13:37] LABS: Ferritin 21 ng/ml (20-250); Iron < 10 mcg/dL (65-175); Transferrin 286 mg/dL (203-362)
[2017-06-25 13:51] LABS: Folate 8.6 ng/mL (3.0-16.0)
[2017-06-25] MEDS ORDERED: Iron Sucrose Complex 400 MG in 0.9 % Sodium Chloride 250 ML IVPB ONE (16:12)
[2017-06-26] MEDS: *HR* LORazepam 1 MG TABLET PO PRN ×3 (01:19→15:37)
[2017-06-26 07:12] LABS: Basophils # 0.1 K/mcL (0.0-0.2); Basophils % 0.7 %; Eosinophils # 0.3 K/mcL (0.0-0.6); Eosinophils % 3.7 %; Hematocrit 29.7 % (37.5-50.1); Hemoglobin 9.5 g/dL (12.9-16.9); Immature Granulocytes % 0.4 % (0-4); Lymphocytes # 1.4 K/mcL (0.6-4.6); Lymphocytes % 19.7 %; Mean Corpuscular Volume 93.7 fL (83.0-100.0); Monocytes # 0.6 K/mcL (0.0-1.3); Neutrophils # 4.7 K/mcL (1.6-8.9); Platelet Count 129 K/mcL (140-400); Red Blood Count 3.17 M/mcL (4.19-5.50); Red Cell Distribution Width 15.7 % (11.5-14.5); Segmented Neutrophils % 67.5 %
[2017-06-26 08:20] LABS: BUN/Creatinine Ratio 10 (6-26); Blood Urea Nitrogen 11 mg/dL (8-23); Calcium 8.3 mg/dL (8.6-10.3); Carbon Dioxide 28 mEq/L (23-29); Chloride 107 mEq/L (98-107); Glucose 105 mg/dL (70-105); Osmolality,Calculated 286 (280-300); Potassium 4.4 mEq/L (3.5-5.1); Sodium 138 mEq/L (136-145); eGFR For African Americans > 60 (> 60); eGFR For Non-African Americans > 60 (> 60)
[2017-06-26] MEDS: cloNIDine HCl 0.1 MG TABLET PO SCH (08:42)
[2017-06-26] MEDS: Sucralfate 1 GM TABLET PO SCH ×2 (08:42→12:16)
[2017-06-26] MEDS: Famotidine 20 MG TABLET PO SCH (08:42)
[2017-06-26] MEDS: *HR* OxyCODONE Immed Rel 5 MG TABLET PO PRN ×2 (08:53→15:37)
--- NOTE | 2017-06-26 09:53 | Discharge Summary ---
Date of Encounter: 06/26/17 Time of Encounter: 09:50 - Discharge Diagnosis (1) GI bleed Priority: Primary Status: Suspected Qualifiers: GI bleed type/associated pathology: unspecified gastrointestinal hemorrhage type Qualified Code(s): K92.2 - Gastrointestinal hemorrhage, unspecified (2) Acute blood loss anemia Priority: Primary Status: Acute (3) Hypertension Priority: Secondary Status: Chronic Qualifiers: Hypertension type: essential hypertension Qualified Code(s): I10 - Essential (primary) hypertension (4) Karimi esophagus Priority: Primary Status: Acute Qualifiers: Karimi's esophagus type: with high grade dysplasia Qualified Code(s): K22.711 - Karimi's esophagus with high grade dysplasia - Discharge Medications Prescriptions: Sucralfate [Carafate] 1 gm PO QIDAC #120 tablet Home Medications: cloNIDine HCl [CloNIDine HCl] 0.1 mg PO BID #30 tablet 06/12/17 [Rx] Famotidine [Pepcid] 20 mg PO DAILY 06/15/17 [History] Ondansetron ODT [Zofran ODT] 4 mg PO Q6H PRN 06/15/17 [History] LORazepam [Ativan] 1 mg PO TID PRN tablet 06/17/17 [Rx] Benzonatate [Tessalon] 200 mg PO TID PRN 06/22/17 [History] Calcium Carbonate [Tums] 500 mg PO Q1H PRN MDD 15 TAB MAX 06/22/17 [History] Chloraseptic Cavalier [Chloraseptic] 2 spray MM Q2H PRN 06/22/17 [History] Pantoprazole Sodium 40 mg PO DAILY 06/22/17 [History] Promethazine [Phenergan] 25 mg PO Q4H PRN 06/22/17 [History] Sodium Chloride/Aloe Vera [[place] Saline Nasal Gel Cavalier] 2 spr NS Q15M PRN [History] guaiFENesin [Child Mucinex Chest Congestion] 100 mg PO QID PRN 06/22/17 [History ] Sucralfate [Carafate] 1 gm PO QIDAC #120 tablet 06/26/17 [Rx] Allergies/Adverse Reactions: 3 Allergy/AdvReac Type Severity Reaction Status Date / Time acetaminophen AdvReac Fatigued Verified 06/12/17 17:33 codeine AdvReac Shakiness Verified 06/10/17 12:34 Date of admission: 06/21/17 19:06 Primary care physician: PCP NONE Consults: 06/21/17 20:08 Consult to Psychiatry [CONS] Routine Consulting Provider: Psychiatry [place] Reason for Consult: suicidal eval, recently seen in the hospital Call Completed: No Consult to Surgery [CONS] Routine Consulting Provider: Surgery [facility] Reason for Consult: recurrent anemia, melena, intermittent GIB ? Call Completed: Yes 06/24/17 09:13 Consult to Digital Imaging Specialist [CONS] Routine Reason for SW Consult: Family has questions about guardianship - Patient Status Disposition: Home, Self-Care Condition: Fair Overall status at discharge: patient is progressing back to baseline - Discharge Instructions Follow Up With: NONE,PCP [Primary Care Provider] - (no family doctor and he does not want me to find him one) Priya Prajapati MD [Partnered Physician] - (Follow-up with Dr. Prajapati as soon as possible for Karimi's esophagus with high grade dysplasia. SENT WEB REQUEST ON 06-25-17 @0900) - Diet and Activity Activity: increase activity as tolerated Diet: regular diet Hospital course: Mr. Dowling is a 72 year old male who presents as a transfer from [facility] for anemia, melena suspicious for ongoing UGIB. He was here the week prior with similar complaints and was investigated withan EGD 06/16/[address] Stewart without evidence of active bleed . At this time to EGD done by Dr. Stewart showed localized moderate mucosal variants characterized by granularity was found that the GE junction. There was also localized mild mucosal variances authorized by granularity found in the gastric antrum. There was a localized erosion without bleeding found in the duodenal bulb. Pathology showed Karimi s esophagus with at low grade and focal high grade dysplasia . At that time he was discharged but he reported that he had presented to [facility] around 06/20/17 with anemia and reported anemia needing repeat blood transfusion. A tagged RBC scan done on 06/20/17 was w/o evidence of active bleeding. He was transferred to our facility with a hemoglobin of 5.9. He required multiple transfusions. After transfusions here he remained stable. We will consult surgery again. They added Carafate. Surgery did discuss the case with Dr. Prajapati per documentation. He will be seen by GI as an outpatient for possible EMR versus radiofrequency ablation . He remained hemodynamically stable. He was stable for discharge on 06/26/2017. On day of discharge his hemoglobin was 9.5. The day prior was 9.3 and a day prior to that was 8.6. Hemoglobin was 5.9 on admission as mentioned above. - Time Spent with Patient Total time spent providing and/or coordinating discharge services: Greater than 30 minutes - Constitutional Vitals: Temp Pulse Resp BP Pulse Ox 98.0 F 75 16 108/65 100 06/26/17 07:38 06/26/17 08:47 06/26/17 08:45 06/26/17 07:38 06/26/17 08:45 General appearance: Present: A&O X 3, pleasant, no acute distress Exam: GEN: NAD. Seems anxious. CVS: RRR. S1, S2, No m/r/g RESP: CTAB ABD: Soft, NT, ND, +BS EXT: No edema. 2+ DP. No rashes NEURO: Nonfocal - VTE Documentation of Mechanical Device: Venous foot pump, device
[2017-06-26 12:09] VITALS: BP 103/64
[2017-06-26] MEDS: Ondansetron 4 MG/2 ML VIAL IVP PRN (12:17)
== END 2017-06-26 17:30 | disposition home or self-care (01) | DRG 812 ==
LOC: 2NNU 19:06
PROVIDERS: ADMIT Internal Medicine; ATTEND Internal Medicine

== ENCOUNTER 2017-10-27 21:55 | Observation (INO) ==
[2017-10-27] MEDS ORDERED: Naloxone 0.4 MG/ML INJ IVP PRN (22:14)
[2017-10-27] MEDS ORDERED: Nitroglycerin 0.4 MG TAB.SUBL SL PRN (22:15)
[2017-10-27] MEDS ORDERED: *HR* OxyCODONE Immed Rel 5 MG TABLET PO PRN (22:16)
[2017-10-27] MEDS ORDERED: Melatonin 3 MG TABLET PO PRN (22:42)
--- NOTE | 2017-10-27 22:43 | Internal Med History&Physical ---
Date of Encounter: 10/27/17 Time of Encounter: 22:30 Internal Medicine - H&P: HPI Chief complaint: Chest pain Admitted From: Emergency Dept Plans for Post Hospital Care: Home History of present illness: Mr. Dowling is a 72 year old male patient with a history of coronary artery disease , aortic aneurysm, hypertension who presented to the ER with complaints of chest pain that began earlier today. He describes his pain being in the substernal location radiating to the back. Denies any fevers or chills. He does have some associated shortness of breath. He has not been taking his aspirin. He reports having a stent placed about 5 years back. His pain did not improve despite getting nitroglycerin. No palpitations. No orthopnea. No pedal edema. No nausea or vomiting. Past Med Surg Social Fam HX - Past Medical History Medical history: aortic aneurysm, coronary artery disease, hyperlipidemia, hypertension, kidney stones, myocardial infarction Additional medical history: AAA repair. Psychiatric history: depression - Past Surgical History Surgical History: vascular surgery (endovascular AAA repair) Additional surgical history: patient believes stents were placed during vascular surgery, "I don't really know." - Social History Smoking Status: Former smoker Smokeless Tobacco Status: No Alcohol use: rarely Drug use: none - Family History Mother Living Status: Hx Family Cardiac Disorders: Yes (NM) Father Adopted: No Living Status: Hx Family Cancer: Yes (Skin cancer) Internal Medicine - H&P: Meds cloNIDine HCl [CloNIDine HCl] 0.1 mg PO DAILY 10/27/17 [History] 3 Allergy/AdvReac Type Severity Reaction Status Date / Time acetaminophen AdvReac Fatigued Verified 10/27/17 18:56 codeine AdvReac Shakiness Verified 10/27/17 18:56 All Systems PM: A 10-system review of systems was performed and is negative for pertinent findings except as documented above in the HPI. - Constitutional Constitutional: no chills, no fever(s), no night sweats - Cardiovascular Cardiovascular ROS IM: chest pain, no diaphoresis, no dyspnea, no lightheadedness, no palpitations, no syncope - Respiratory Respiratory: dyspnea, no cough, no wheezing, no excessive phlegm production - Gastrointestinal Gastrointestinal: no abdominal pain, no diarrhea, no hematemesis, no hematochezia, no melena, no nausea, no vomiting - Musculoskeletal Musculoskeletal ROS IM: no numbness, no tingling - Integumentary Integumentary IM: no rash, no unusual bruising - Neurological Neurological ROS: no confusion, no convulsions, no focal weakness, no numbness, no tingling, no tremor(s) - Hematologic/Lymphatic Hematologic/Lymphatic: no easy bruising - Constitutional Vitals: Temp Pulse Resp BP Pulse Ox 98.3 F 93 16 164/84 94 10/27/17 22:16 10/27/17 22:16 10/27/17 22:16 10/27/17 22:16 10/27/17 22:16 General appearance: Present: cooperative, mild distress, A&O X 3, pleasant, answers questions appropriately - Respiratory Respiratory exam: Present: chest wall tenderness (Substernal tenderness to deep palpation), CTAB. Absent: accessory muscle use, rales, rhonchi, wheezes - Cardiovascular Cardiovascular exam: Present: RRR, +S1, +S2. Absent: diastolic murmur, gallop, rubs, systolic murmur - GI/Abdominal GI/Abdominal exam: Present: normal bowel sounds, soft, no peritoneal signs. Absent: distended, tenderness - Extremities Exam Extremities exam: Present: warm, radial pulses palpable and symmetrical. Absent : calf tenderness, cyanotic, pedal edema - Neurological Exam Neurological exam: Present: CN II-XII intact, oriented X3, no focal deficits. Absent: facial droop, speech deficit - Skin Skin exam: Present: dry, intact Internal Med - H&P Results - Labs Labs: WBC 7.7, PT 14.2, sodium 142, potassium 2.7, troponin less than 0.03, BNP 127 - EKG Data -: EKG Interpreted by Myself EKG shows normal: sinus rhythm - EKG Data EKG comments: 10/27/17 22:47 LVH - Impressions No signs of any infiltrate. - Assessment and plan (1) Chest pain Current Visit: Yes Status: Acute Assessment and plan: Chest pain radiating to the back. Recent does report a history of aortic aneurysm. Will get a CT angiogram. Monitor with telemetry to rule out ACS. Trend troponins. If troponins are negative and CTA negative, consider stress test in morning. Qualifiers: Chest pain type: precordial pain Qualified Code(s): R07.2 - Precordial pain (2) CAD (coronary artery disease) Current Visit: Yes Status: Chronic Assessment and plan: With prior PCI and stent. Will place patient on aspirin. We will get 2-D echocardiogram. Qualifiers: Coronary Disease-Associated Artery/Lesion type: [place] artery [place] vs. transplanted heart: [place] heart Associated angina: without angina Qualified Code(s): I25.10 - Atherosclerotic heart disease of [place] coronary artery without angina pectoris (3) Hypertension Current Visit: Yes Status: Chronic Assessment and plan: Blood pressure was severely elevated on arrival. It has improved since then. Will continue home medications. If persistently greater than 180 systolic, will place him on IV medications. Qualifiers: Hypertension type: essential hypertension Qualified Code(s): I10 - Essential (primary) hypertension (4) Hypokalemia Current Visit: Yes Status: Acute Assessment and plan: Potassium is 2.7. He received 40 of potassium chloride in the ER. We will recheck levels in the morning. (5) DVT prophylaxis Current Visit: Yes Status: Acute Assessment and plan: Will await CT angiogram. If negative, will place patient on subcutaneous heparin - Time Spent With Patient Total time spent is greater than 50% in coordination of care (as documented) at patient's floor/unit and/or counseling patient:
[2017-10-27] MEDS ORDERED: Isovue-370 500 ML INFUS..BTL IV ONE (22:51)
[2017-10-27] MEDS ORDERED: Ipratropium/Albuterol Neb 3 ML IH PRN (22:51)
[2017-10-28] MEDS ORDERED: Isovue-370 500 ML INFUS..BTL IV ONE (00:28)
[2017-10-28] MEDS: *HR* OxyCODONE Immed Rel 5 MG TABLET PO PRN ×2 (02:21→08:14)
[2017-10-28 05:55] LABS: Basophils % 0.5 %; Eosinophils # 0.1 K/mcL (0.0-0.6); Eosinophils % 1.6 %; Hematocrit 35.5 % (37.5-50.1); Hemoglobin 11.3 g/dL (12.9-16.9); Immature Granulocytes % 0.5 % (0-4); Lymphocytes # 1.7 K/mcL (0.6-4.6); Lymphocytes % 27.4 %; Mean Corpuscular HGB Conc 31.8 g/dL (31.6-35.5); Mean Corpuscular Hemoglobin 27.2 pg (28.0-33.3); Mean Corpuscular Volume 85.3 fL (83.0-100.0); Mean Platelet Volume 13.7 fL (9.4-12.4); Monocytes # 0.5 K/mcL (0.0-1.3); Monocytes % 7.7 %; Neutrophils # 3.8 K/mcL (1.6-8.9); Platelet Count 128 K/mcL (140-400); Red Blood Count 4.16 M/mcL (4.19-5.50); Red Cell Distribution Width 15.8 % (11.5-14.5); Segmented Neutrophils % 62.3 %
[2017-10-28 06:05] LABS: BUN/Creatinine Ratio 13 (6-26); Blood Urea Nitrogen 16 mg/dL (8-23); Calcium 8.9 mg/dL (8.6-10.3); Carbon Dioxide 29 mEq/L (23-29); Chloride 109 mEq/L (98-107); Chol/HDL Ratio 3.4 (0-4.9); Glucose 105 mg/dL (70-105); Osmolality,Calculated 298 (280-300); Potassium 3.2 mEq/L (3.5-5.1); Sodium 143 mEq/L (136-145); eGFR For African Americans > 60 (> 60); eGFR For Non-African Americans 58 (> 60)
[2017-10-28 06:58] VITALS: BP 169/85
[2017-10-28 09:17] LABS: Estimated Average Glucose 123 mg/dl; Hemoglobin A1C 5.9 %
[2017-10-28] MEDS ORDERED: *HR* LORazepam 2 MG/ML VIAL IVP ONE (10:38)
--- NOTE | 2017-10-28 10:44 | Internal Med Progress Note ---
Date of Encounter: 10/28/17 Time of Encounter: 10:41 - Assessment and plan (1) Chest pain Current Visit: Yes Status: Acute Assessment and plan: presented with chest pain that radiated to back. Chest CTA negative for pulmonary embolism or aortic dissection. Serial troponins negative. EKG without acute ST changes. Stress test and echo pending. Cont ASA Qualifiers: Chest pain type: precordial pain Qualified Code(s): R07.2 - Precordial pain (2) CAD (coronary artery disease) Current Visit: Yes Status: Chronic Assessment and plan: per hx with PCI and stents. Not on antiplatelet therapy for unknown reason. Continue ASA, BB, ZOILA. Stress test as noted above. Qualifiers: Coronary Disease-Associated Artery/Lesion type: [place] artery [place] vs. transplanted heart: [place] heart Associated angina: without angina Qualified Code(s): I25.10 - Atherosclerotic heart disease of [place] coronary artery without angina pectoris (3) Hypertension Current Visit: Yes Status: Chronic Assessment and plan: per hx. BP elevated on arrival. Question medication compliance. Home clonidine stopped and ZOILA/BB initiated. BP remains variable. Continue to monitor and titrate PRN Qualifiers: Hypertension type: essential hypertension Qualified Code(s): I10 - Essential (primary) hypertension (4) Hypokalemia Current Visit: Yes Status: Inactive Assessment and plan: K 2.7; replaced. Repeat K 3.2. Monitor and replace PRN (5) Descending thoracic aortic aneurysm Current Visit: Yes Status: Acute Assessment and plan: chest CTA with minimal fusiform aneurysm of the descending thoracic aorta. (6) Thyroid nodule Current Visit: Yes Status: Acute Assessment and plan: 1.6 cm left thyroid nodule. Outpatient follow-up ultrasound is recommended for further evaluation. (7) Lung nodule Current Visit: Yes Status: Acute Assessment and plan: chest CTA with stable appearance of an 8 mm ground-glass nodule in the left lower lobe. Follow-up CT recommended in 2 year (8) Anxiety Current Visit: Yes Status: Acute Assessment and plan: anxious on exam. Suspect this may be contributing to chest pain and anxiety. Check UDS. One time dose IV ativan (9) DVT prophylaxis Current Visit: Yes Status: Acute Assessment and plan: heparin - Time Spent With Patient Total time spent is greater than 50% in coordination of care (as documented) at patient's floor/unit and/or counseling patient: - Subjective Interval history: Seen and examined at bedside. Still having intermittent chest pain. No SOB. He says he is nervous and anxious and requesting something for anxiety - Constitutional Vitals: Temp Pulse Resp BP Pulse Ox 97.6 F 63 14 169/85 98 10/28/17 06:57 10/28/17 06:57 10/28/17 06:57 10/28/17 06:57 10/28/17 06:57 General appearance: Present: cooperative, mild distress, A&O X 3, pleasant, answers questions appropriately - Head Head exam: Present: atraumatic, normocephalic - Eye Eye exam: Present: PERRL, conjuntiva pink, sclera anicteric Pupils: Present: PERRL - Neck Neck exam general surgery: Present: supple, trachea midline. Absent: lymphadenopathy - Respiratory Respiratory exam: Present: CTAB. Absent: accessory muscle use, rales, rhonchi, wheezes - Cardiovascular Cardiovascular exam: Present: RRR, +S1, +S2. Absent: diastolic murmur, gallop, rubs, systolic murmur - GI/Abdominal GI/Abdominal exam: Present: normal bowel sounds, soft, no peritoneal signs. Absent: distended, tenderness - Extremities Exam Extremities exam: Present: warm, radial pulses palpable and symmetrical. Absent : calf tenderness, cyanotic, pedal edema - Neurological Exam Neurological exam: Present: CN II-XII intact, oriented X3, no focal deficits. Absent: pronater drift, facial droop, speech deficit - Psychiatric Psychiatric exam: Present: anxious - Skin Skin exam: Present: dry, intact Internal Medicine: Result - Labs CBC & Chem 7: 10/28/17 05:07 10/28/17 05:07 Labs: Short CBC 10/28/17 Range/Units 05:07 WBC 6.1 (4.3-11.1) K/mcL Hgb 11.3 L (12.9-16.9) g/dL Hct 35.5 L (37.5-50.1) % Plt Count 128 L (140-400) K/mcL Neutrophils # 3.8 (1.6-8.9) K/mcL BMP 10/28/17 05:07 Sodium 143 Potassium 3.2 L Chloride 109 H Carbon Dioxide 29 BUN 16 Creatinine 1.23 Glucose 105 Calcium 8.9 Cardiac Enzymes 10/27/17 10/28/17 Range/Units 22:49 05:07 Troponin I < 0.03 < 0.03 (< 0.04) ng/mL - Impressions Impressions Chest CTA 10/28/17 00:28 IMPRESSION: 1. No evidence of aortic dissection. 2. Minimal fusiform aneurysm of the descending thoracic aorta. 3. 1.6 cm left thyroid nodule. Outpatient follow-up ultrasound is recommended for further evaluation. 4. Remote L1 compression fracture. 5. Stable appearance of an 8 mm ground-glass nodule in the left lower lobe. Continued CT follow-up recommended in 2 years. D/ / Shawn Lauren MD / Shawn Lauren MD Interpreting Provider: Shawn Lauren MD Consult Discharge Plan - Plan Referrals: Maryann Myrick CNP [Advanced Practice Nurse] - 11/14/17 1:00 pm
[2017-10-28] MEDS ORDERED: Aspirin 81 MG TAB.CHEW PO SCH (11:00)
[2017-10-28] MEDS ORDERED: Regadenoson 0.4 MG/5 ML SYRINGE IVP ONE (11:57)
[2017-10-28 14:58] LABS: Amphetamine Screen,Urine Negative ng/mL (Cutoff=1000); Barbiturate Screen,Urine Negative ng/mL (Cutoff=200); Benzodiazepines Screen,Urine Negative ng/mL (Cutoff=200); Cannabinoid Screen,Urine Negative ng/mL (Cutoff = 50); Cocaine Screen,Urine Negative ng/mL (Cutoff= 300); Opiate Screen,Urine Positive ng/mL (Cutoff=300); Phencyclidine Screen,Urine Negative ng/mL (Cutoff=25)
--- NOTE | 2017-10-28 15:51 | Event Note ---
Date of Encounter: 10/28/17 Time of Encounter: 15:51 Notified by RN that patient left AMA
== END 2017-10-28 15:56 | disposition left against medical advice (07) ==
LOC: 3BNU
PROVIDERS: ADMIT Internal Medicine; ATTEND Internal Medicine